=== PATIENT | male | born 1950 | race African-American/Black ===

== ENCOUNTER 2018-08-14 14:04 | Inpatient (IN) | payer OTHER, MEDICARE ==
[~2018-08-14] VITALS: Ht 175.3 cm; Wt 73.0 kg
[2018-08-14] MEDS ORDERED: IV NS 0.9% 500 ML BAG IV ONE ×2 (15:00→17:00)
[2018-08-14 15:10] LABS: BASOPHILS # (AUTO) 0.1 /CMM (0.0-0.2); BASOPHILS % (AUTO) 1.2 % (0.0-2.0); EOSINOPHILS % (AUTO) 1.6 % (0.0-6.0); HEMATOCRIT 39 % (39-51); HEMOGLOBIN 12.9 g/dL (13.5-17.5); LYMPHOCYTES # (AUTO) 1.5 /CMM (0.8-4.8); LYMPHOCYTES % (AUTO) 28.3 % (20.0-44.0); MEAN CORPUSCULAR HGB CONC 33 g/dl (31.0-36.0); MEAN CORPUSCULAR VOLUME 96 fL (80-96); MONOCYTES # (AUTO) 0.6 /CMM (0.1-1.30); MONOCYTES % (AUTO) 12.1 % (2.0-12.0); NEUTROPHILS # (AUTO) 2.9 /CMM (1.8-8.9); NEUTROPHILS % (AUTO) 56.8 % (43.0-81.0); PLATELET COUNT (AUTO) 271 /CMM (150-450); RED BLOOD CELL COUNT(AUTO) 4.08 MIL/uL (4.5-6.0); WHITE BLOOD COUNT (AUTO) 5.2 K/uL (4.3-11.0)
[2018-08-14 15:18] LABS: CALCIUM, SERUM 9.2 mg/dL (8.5-10.1); CREATININE 0.8 mg/dL (0.6-1.3); POTASSIUM 3.3 mmol/L (3.5-5.1)
[2018-08-14 15:22] LABS: BILIRUBIN,URINE SMALL (NEGATIVE); BLOOD, URINE Large Ery/uL (NEGATIVE); KETONES,URINE Trace (NEGATIVE); LEUKOCYTE ESTERASE ,URINE Trace (NEGATIVE); NITRITE, URINE Negative (NEGATIVE); PROTEIN,URINE 100 mg/dl (NEGATIVE); UGLUCOSE Negative (NEGATIVE); UROBILINOGEN,URINE 0.2 EU/dL (0.2)
[2018-08-14 15:24] LABS: ALBUMIN 3.9 g/dL (3.4-5.0); BILIRUBIN,DIRECT 0.2 mg/dL (0.0-0.2); BILIRUBIN,TOTAL 0.4 mg/dL (0.2-1.0); TOTAL PROTEIN, SERUM 8.4 g/dL (6.4-8.2)
[2018-08-14] MEDS ORDERED: RIVA10TA PO (15:26)
[2018-08-14] MEDS ORDERED: LINA290C PO (15:26)
[2018-08-14] MEDS ORDERED: HYDR-4384 PO (15:26)
[2018-08-14] MEDS ORDERED: FURO-144 PO (15:26)
[2018-08-14] MEDS ORDERED: METO25TA20 PO (15:26)
[2018-08-14] MEDS ORDERED: LACT10SO43 PO (15:26)
[2018-08-14] MEDS ORDERED: GLAT40SY SQ (15:26)
[2018-08-14] MEDS ORDERED: LACO150T2 PO (15:26)
[2018-08-14] MEDS ORDERED: LEVE250T2 PO (15:26)
[2018-08-14] MEDS ORDERED: LOTE5DRO4 EACHEYE (15:26)
[2018-08-14] MEDS ORDERED: ACET-868 PO (15:26)
[2018-08-14] MEDS ORDERED: ALBU2.5V38 IH (15:26)
[2018-08-14] MEDS ORDERED: ALPR0.5T8 PO (15:26)
[2018-08-14] MEDS ORDERED: DILT300C57 PO (15:26)
[2018-08-14] MEDS ORDERED: OXCA300T15 PO ×2 (15:26)
[2018-08-14 15:36] LABS: APPEARANCE,URINE HAZY (CLEAR)
[2018-08-14 15:37] LABS: COLOR,URINE DARK YELLOW (YELLOW); RBC,URINE 51-80 /HPF (0-2)
[2018-08-14 15:38] LABS: BACTERIA,URINE Few /HPF (None Seen); MUCUS,URINE Many /LPF (None Seen); SQUAMOUS EPITHELIAL CELL,UR Moderate /HPF (None Seen)
[2018-08-14] MEDS ORDERED: ASPIRIN 300 MG/SUPP.RECT RC ONE ×2 (16:30→16:48)
[2018-08-14] MEDS ORDERED: POTASSIUM CL. PREMIX PERIPHER. 50 ML ONE ×2 (16:48→17:49)
[2018-08-14] MEDS ORDERED: CT SWABBABLE VALVE TRANS SET 1 EA INFUS.SET MC ONE (16:52)
[2018-08-14] MEDS ORDERED: IOHEXOL-300 100 ML VIAL IV ONE (16:52)
[2018-08-14] MEDS ORDERED: IV NS 0.9% 250 ML IV ONE (16:52)
[2018-08-14] MEDS: POTASSIUM CL. PREMIX PERIPHER. 50 ML IV SCH ×4 (17:04→21:15)
[2018-08-14] MEDS ORDERED: MAGNESIUM HYDROXIDE 30 ML UDC PO PRN (18:30)
[2018-08-14] MEDS ORDERED: HYDROCODONE/APAP 5/325MG 1 EACH TABLET PO PRN (18:30)
[2018-08-14] MEDS ORDERED: Z GUARD REMEDY 2 OZ OINT TP PRN (18:30)
[2018-08-14] MEDS ORDERED: ALPRAZOLAM 0.5 MG TABLET PO PRN (18:30)
[2018-08-14] MEDS ORDERED: ONDANSETRON HCL/PF 4 MG/2 ML VIAL IVP PRN (18:30)
[2018-08-14] MEDS ORDERED: MAG HYDROX/AL HYDROX/SIMETH 30 ML UDC PO PRN (18:30)
[2018-08-14] MEDS ORDERED: ALBUTEROL FS 2.5 MG/0.5 ML VIAL.NEB NEB PRN (19:30)
[2018-08-14 20:00] VITALS: BP 132/80
[2018-08-14] MEDS: LEVETIRACETAM (250 MG) 250 MG TABLET PO SCH (21:15)
[2018-08-14] MEDS: LACTULOSE 10 G/15 ML UDC (PYXIS) PO SCH (21:15)
[2018-08-14] MEDS: LACOSAMIDE 50 MG TABLET PO SCH (21:16)
[2018-08-14] MEDS: METOPROLOL TARTRATE 25 MG TABLET PO SCH (21:16)
[2018-08-14] MEDS: OXCARBAZEPINE 150 MG TABLET PO SCH (21:17)
[2018-08-15] VITALS: BP 92/42
[2018-08-15 04:00] VITALS: BP 121/74
[2018-08-15 06:23] LABS: BASOPHILS % (AUTO) 1.1 % (0.0-2.0); EOSINOPHILS % (AUTO) 1.8 % (0.0-6.0); HEMATOCRIT 37 % (39-51); HEMOGLOBIN 12.1 g/dL (13.5-17.5); LYMPHOCYTES # (AUTO) 1.3 /CMM (0.8-4.8); MEAN CORPUSCULAR HGB CONC 33 g/dl (31.0-36.0); MEAN CORPUSCULAR VOLUME 96 fL (80-96); MONOCYTES # (AUTO) 0.5 /CMM (0.1-1.30); MONOCYTES % (AUTO) 10.2 % (2.0-12.0); NEUTROPHILS # (AUTO) 2.6 /CMM (1.8-8.9); NEUTROPHILS % (AUTO) 57.9 % (43.0-81.0); PLATELET COUNT (AUTO) 230 /CMM (150-450); RED BLOOD CELL COUNT(AUTO) 3.84 MIL/uL (4.5-6.0); WHITE BLOOD COUNT (AUTO) 4.6 K/uL (4.3-11.0)
[2018-08-15 06:39] LABS: CALCIUM, SERUM 8.7 mg/dL (8.5-10.1); CREATININE 0.8 mg/dL (0.6-1.3); MAGNESIUM 1.8 mg/dL (1.8-2.4); PHOSPHORUS 3.4 mg/dL (2.5-4.9); POTASSIUM 3.7 mmol/L (3.5-5.1)
[2018-08-15 06:40] LABS: THYROID STIMULATING HORMONE 1.721 uIU/mL (0.358-3.74)
[2018-08-15 08:00] VITALS: BP 123/60
[2018-08-15] MEDS: DILTIAZEM HCL CD 300 MG PO SCH (09:25)
[2018-08-15] MEDS: METOPROLOL TARTRATE 25 MG TABLET PO SCH ×2 (09:26→21:40)
[2018-08-15] MEDS: OXCARBAZEPINE 150 MG TABLET PO SCH ×2 (09:26→21:39)
[2018-08-15] MEDS: LEVETIRACETAM (250 MG) 250 MG TABLET PO SCH ×2 (09:27→21:38)
[2018-08-15] MEDS: LACOSAMIDE 50 MG TABLET PO SCH ×2 (09:27→21:38)
[2018-08-15] MEDS: LACTULOSE 10 G/15 ML UDC (PYXIS) PO SCH ×2 (09:27→13:00)
[2018-08-15] MEDS ORDERED: LINACLOTIDE 290 MCG PO SCH (11:00)
[2018-08-15] MEDS ORDERED: LOTEPREDNOL ETABONATE EACHEYE PRN (11:00)
[2018-08-15 12:00] VITALS: BP_SYST 120; BP_DIAS 60; BP_DIAS 78
[2018-08-15] MEDS: PANTOPRAZOLE 40 MG VIAL IV SCH (14:30)
[2018-08-15] MEDS ORDERED: CHOL20004 PO (15:06)
[2018-08-15] MEDS ORDERED: SULF1TAB48 PO (15:06)
[2018-08-15] MEDS ORDERED: CRAN450C PO (15:06)
[2018-08-15 16:00] VITALS: BP_SYST 120; BP_SYST 121; BP_DIAS 78; BP_DIAS 80
[2018-08-15] MEDS: GLATIRAMER ACETATE 40 MG SQ SCH ×2 (17:53→21:37)
[2018-08-15] MEDS ORDERED: BISA10SU61 RC (19:26)
[2018-08-15 20:00] VITALS: BP_SYST 117; BP_SYST 123; BP_DIAS 72; BP_DIAS 83
[2018-08-16] VITALS: BP 113/71
[2018-08-16 04:00] VITALS: BP_SYST 101; BP_SYST 112; BP_DIAS 52; BP_DIAS 68
[2018-08-16 06:44] LABS: BASOPHILS % (AUTO) 0.9 % (0.0-2.0); EOSINOPHILS % (AUTO) 1.5 % (0.0-6.0); HEMATOCRIT 36 % (39-51); LYMPHOCYTES # (AUTO) 1.2 /CMM (0.8-4.8); LYMPHOCYTES % (AUTO) 25.7 % (20.0-44.0); MEAN CORPUSCULAR HGB CONC 33 g/dl (31.0-36.0); MEAN CORPUSCULAR VOLUME 95 fL (80-96); MONOCYTES # (AUTO) 0.4 /CMM (0.1-1.30); MONOCYTES % (AUTO) 8.9 % (2.0-12.0); NEUTROPHILS # (AUTO) 2.9 /CMM (1.8-8.9); PLATELET COUNT (AUTO) 220 /CMM (150-450); WHITE BLOOD COUNT (AUTO) 4.5 K/uL (4.3-11.0)
[2018-08-16 07:07] LABS: CALCIUM, SERUM 8.7 mg/dL (8.5-10.1); CREATININE 0.9 mg/dL (0.6-1.3); POTASSIUM 4.1 mmol/L (3.5-5.1)
[2018-08-16 08:00] VITALS: BP 138/71
[2018-08-16] MEDS: SULFAMETH/TRIMETH 800/160 MG 1 UDTAB TABLET PO SCH (09:49)
[2018-08-16] MEDS: LACOSAMIDE 50 MG TABLET PO SCH ×2 (09:49→20:51)
[2018-08-16] MEDS: LEVETIRACETAM (250 MG) 250 MG TABLET PO SCH ×2 (09:50→20:52)
[2018-08-16] MEDS: METOPROLOL TARTRATE 25 MG TABLET PO SCH ×2 (09:50→20:52)
[2018-08-16] MEDS: OXCARBAZEPINE 150 MG TABLET PO SCH ×2 (09:51→21:03)
[2018-08-16] MEDS: DILTIAZEM HCL CD 300 MG PO SCH (09:53)
[2018-08-16 12:00] VITALS: BP 134/79
[2018-08-16] MEDS ORDERED: NEOSTIGMINE IV SCH (14:38)
[2018-08-16] MEDS: PANTOPRAZOLE 40 MG VIAL IV SCH (15:08)
[2018-08-16 16:00] VITALS: BP 132/81
[2018-08-16] MEDS ORDERED: NEOSTIGMINE METHYLSULFATE INJ 1 MG/ML VIAL IV ONE (17:00)
[2018-08-16] MEDS: LACTULOSE 10 G/15 ML UDC (PYXIS) PO SCH (19:19)
[2018-08-16 20:00] VITALS: BP 114/66
[2018-08-17] VITALS: BP 120/59
[2018-08-17 04:00] VITALS: BP 119/58
[2018-08-17 07:02] LABS: BASOPHILS # (AUTO) 0.1 /CMM (0.0-0.2); BASOPHILS % (AUTO) 1.3 % (0.0-2.0); EOSINOPHILS % (AUTO) 1.7 % (0.0-6.0); HEMATOCRIT 34 % (39-51); HEMOGLOBIN 11.4 g/dL (13.5-17.5); LYMPHOCYTES # (AUTO) 1.1 /CMM (0.8-4.8); LYMPHOCYTES % (AUTO) 26.9 % (20.0-44.0); MEAN CORPUSCULAR HGB CONC 34 g/dl (31.0-36.0); MEAN CORPUSCULAR VOLUME 94 fL (80-96); MONOCYTES # (AUTO) 0.5 /CMM (0.1-1.30); MONOCYTES % (AUTO) 12.7 % (2.0-12.0); NEUTROPHILS # (AUTO) 2.4 /CMM (1.8-8.9); NEUTROPHILS % (AUTO) 57.4 % (43.0-81.0); PLATELET COUNT (AUTO) 216 /CMM (150-450); RED BLOOD CELL COUNT(AUTO) 3.58 MIL/uL (4.5-6.0); WHITE BLOOD COUNT (AUTO) 4.1 K/uL (4.3-11.0)
[2018-08-17 07:12] LABS: CALCIUM, SERUM 8.1 mg/dL (8.5-10.1); CREATININE 0.8 mg/dL (0.6-1.3); POTASSIUM 3.6 mmol/L (3.5-5.1)
[2018-08-17 08:00] VITALS: BP 119/77
[2018-08-17] MEDS: LACOSAMIDE 50 MG TABLET PO SCH ×2 (09:55→21:30)
[2018-08-17] MEDS: SULFAMETH/TRIMETH 800/160 MG 1 UDTAB TABLET PO SCH (09:56)
[2018-08-17] MEDS: OXCARBAZEPINE 150 MG TABLET PO SCH ×2 (09:56→21:31)
[2018-08-17] MEDS: METOPROLOL TARTRATE 25 MG TABLET PO SCH ×2 (09:56→21:31)
[2018-08-17] MEDS: LACTULOSE 10 G/15 ML UDC (PYXIS) PO SCH ×3 (09:57→17:51)
[2018-08-17] MEDS: LEVETIRACETAM (250 MG) 250 MG TABLET PO SCH ×2 (09:57→21:30)
[2018-08-17] MEDS: DILTIAZEM HCL CD 300 MG PO SCH (09:59)
[2018-08-17] MEDS: LINZESS 290MCG CAPSULE PO SCH (10:58)
[2018-08-17 12:00] VITALS: BP 123/80
[2018-08-17] MEDS: PANTOPRAZOLE 40 MG VIAL IV SCH (14:36)
[2018-08-17] MEDS: ACETAMINOPHEN 325 MG TABLET PO PRN (14:38)
[2018-08-17 16:00] VITALS: BP 125/87
[2018-08-17 20:00] VITALS: BP 124/78
[2018-08-18 04:00] VITALS: BP 111/73
[2018-08-18 06:21] LABS: BASOPHILS % (AUTO) 0.6 % (0.0-2.0); HEMATOCRIT 34 % (39-51); HEMOGLOBIN 11.6 g/dL (13.5-17.5); LYMPHOCYTES # (AUTO) 1.3 /CMM (0.8-4.8); LYMPHOCYTES % (AUTO) 32.4 % (20.0-44.0); MEAN CORPUSCULAR HGB CONC 34 g/dl (31.0-36.0); MEAN CORPUSCULAR VOLUME 94 fL (80-96); MONOCYTES # (AUTO) 0.5 /CMM (0.1-1.30); MONOCYTES % (AUTO) 13.6 % (2.0-12.0); NEUTROPHILS % (AUTO) 50.4 % (43.0-81.0); PLATELET COUNT (AUTO) 209 /CMM (150-450); RED BLOOD CELL COUNT(AUTO) 3.65 MIL/uL (4.5-6.0); WHITE BLOOD COUNT (AUTO) 3.9 K/uL (4.3-11.0)
[2018-08-18 06:54] LABS: ALBUMIN 3.2 g/dL (3.4-5.0); BILIRUBIN,TOTAL 0.5 mg/dL (0.2-1.0); CALCIUM, SERUM 8.2 mg/dL (8.5-10.1); CREATININE 0.8 mg/dL (0.6-1.3); MAGNESIUM 1.7 mg/dL (1.8-2.4); PHOSPHORUS 3.2 mg/dL (2.5-4.9); POTASSIUM 3.5 mmol/L (3.5-5.1); TOTAL PROTEIN, SERUM 6.7 g/dL (6.4-8.2)
[2018-08-18 08:00] VITALS: BP 121/75
[2018-08-18] MEDS: LACTULOSE 10 G/15 ML UDC (PYXIS) PO SCH ×3 (09:52→16:44)
[2018-08-18] MEDS: LACOSAMIDE 50 MG TABLET PO SCH ×2 (09:52→21:53)
[2018-08-18] MEDS: METOPROLOL TARTRATE 25 MG TABLET PO SCH ×2 (09:53→21:53)
[2018-08-18] MEDS: OXCARBAZEPINE 150 MG TABLET PO SCH ×2 (09:53→21:53)
[2018-08-18] MEDS: DILTIAZEM HCL CD 300 MG PO SCH (09:54)
[2018-08-18] MEDS: LEVETIRACETAM (250 MG) 250 MG TABLET PO SCH ×2 (09:54→21:53)
[2018-08-18] MEDS: LINZESS 290MCG CAPSULE PO SCH (09:54)
[2018-08-18] MEDS: SULFAMETH/TRIMETH 800/160 MG 1 UDTAB TABLET PO SCH (09:55)
[2018-08-18] MEDS: Magnesium 1GM/D5W 100ML PREMIX 100 ML IV SCH ×2 (11:28→12:30)
[2018-08-18] MEDS: PANTOPRAZOLE 40 MG VIAL IV SCH (13:36)
[2018-08-18] MEDS ORDERED: BISACODYL SUPP (10 MG) 10 MG/SUPP.RECT SUPP.RECT RC PRN (14:30)
[2018-08-18 16:00] VITALS: BP 119/66
[2018-08-18] MEDS ORDERED: GLATIRAMER SQ SCH (16:56)
[2018-08-18 20:00] VITALS: BP 120/79
[2018-08-19] MEDS: ACETAMINOPHEN 325 MG TABLET PO PRN (03:02)
[2018-08-19 04:00] VITALS: BP 116/81
[2018-08-19 07:23] LABS: BASOPHILS # (AUTO) 0.1 /CMM (0.0-0.2); BASOPHILS % (AUTO) 1.2 % (0.0-2.0); HEMATOCRIT 36 % (39-51); HEMOGLOBIN 11.9 g/dL (13.5-17.5); LYMPHOCYTES # (AUTO) 1.1 /CMM (0.8-4.8); LYMPHOCYTES % (AUTO) 21.4 % (20.0-44.0); MEAN CORPUSCULAR HGB CONC 33 g/dl (31.0-36.0); MEAN CORPUSCULAR VOLUME 95 fL (80-96); MONOCYTES # (AUTO) 0.5 /CMM (0.1-1.30); NEUTROPHILS # (AUTO) 3.3 /CMM (1.8-8.9); NEUTROPHILS % (AUTO) 65.4 % (43.0-81.0); PLATELET COUNT (AUTO) 203 /CMM (150-450); RED BLOOD CELL COUNT(AUTO) 3.78 MIL/uL (4.5-6.0)
[2018-08-19 07:36] LABS: CALCIUM, SERUM 8.1 mg/dL (8.5-10.1); CREATININE 0.7 mg/dL (0.6-1.3); PHOSPHORUS 3.1 mg/dL (2.5-4.9); POTASSIUM 3.8 mmol/L (3.5-5.1)
[2018-08-19 08:00] VITALS: BP 128/72
[2018-08-19] MEDS: DILTIAZEM HCL CD 300 MG PO SCH (09:14)
[2018-08-19] MEDS: LINZESS 290MCG CAPSULE PO SCH (09:15)
[2018-08-19] MEDS: LACTULOSE 10 G/15 ML UDC (PYXIS) PO SCH ×2 (09:15→13:08)
[2018-08-19] MEDS: LACOSAMIDE 50 MG TABLET PO SCH (09:16)
[2018-08-19] MEDS: SULFAMETH/TRIMETH 800/160 MG 1 UDTAB TABLET PO SCH (09:16)
[2018-08-19] MEDS: OXCARBAZEPINE 150 MG TABLET PO SCH (09:16)
[2018-08-19] MEDS: LEVETIRACETAM (250 MG) 250 MG TABLET PO SCH (09:16)
[2018-08-19 09:17] VITALS: BP 128/72
[2018-08-19] MEDS: METOPROLOL TARTRATE 25 MG TABLET PO SCH (09:17)
== END 2018-08-19 15:50 | disposition home health service (06) | DRG 388 ==
LOC: ER 14:10 → EDSEX 14:10 → MEDSG1 17:45 → TELE-TD 20:59 → TELE1 08-15 08:00 → MEDSG1 08-17 15:26
PROVIDERS: ADMIT Nurse Practitioner Acute Care; ATTEND Internal Medicine
DX: K56.699 Other intestinal obstruction unspecified as to partial versus complete obstruction (principal); I21.A1 Myocardial infarction type 2; G93.40 Encephalopathy, unspecified; I11.0 Hypertensive heart disease with heart failure; Z86.73 Personal history of transient ischemic attack (TIA), and cerebral infarction without residual deficits; G40.909 Epilepsy, unspecified, not intractable, without status epilepticus; G35 Multiple sclerosis; I50.9 Heart failure, unspecified; E87.6 Hypokalemia; Z98.890 Other specified postprocedural states; Z88.8 Allergy status to other drugs, medicaments and biological substances; Z79.899 Other long term (current) drug therapy; F03.90 Unspecified dementia, unspecified severity, without behavioral disturbance, psychotic disturbance, mood disturbance, and anxiety; Z90.49 Acquired absence of other specified parts of digestive tract; Z83.3 Family history of diabetes mellitus; Z82.49 Family history of ischemic heart disease and other diseases of the circulatory system; Z79.01 Long term (current) use of anticoagulants; Z74.01 Bed confinement status; N40.0 Benign prostatic hyperplasia without lower urinary tract symptoms; K40.90 Unilateral inguinal hernia, without obstruction or gangrene, not specified as recurrent; D63.8 Anemia in other chronic diseases classified elsewhere; I48.2 Chronic atrial fibrillation; K76.89 Other specified diseases of liver; N31.9 Neuromuscular dysfunction of bladder, unspecified
CPT/HCPCS: 36415; 70450-TC; 71045-TC; 74018; 80048-TC; 80053-TC; 80061-TC; 80076-TC; 81000-TC; 83605-TC; 83690-TC; 83735-TC; 84100-TC; 84443-TC; 84484-TC; 85025-TC; 85730-TC; 87081-TC; 87086-TC; 93307-TC; 97110-TC; 97112-TC; 97530-TC; C9113; G0378; J2710; J3475; J3480; J7030; J7050; Q9967

== ENCOUNTER 2019-01-23 14:14 | Inpatient (IN) | payer OTHER, MEDICARE ==
[~2019-01-23] VITALS: Ht 177.8 cm; Wt 84.4 kg
[~2019-01-23 14:14] MED LIST: ACET-868 PO; ALBU2.5V38 IH; BISA10SU61 RC; CHOL20004 PO; CRAN450C PO; DILT300C57 PO; FURO-144 PO; GLAT40SY SQ; LACO150T2 PO; LACT10SO43 PO; LEVE250T2 PO; LINA290C PO; LOTE5DRO4 EACHEYE; METO25TA20 PO; OXCA300T15 PO; PIPERACILLIN /TAZOBACTAM 3.375 G in IV D5W 50 ML IV SCH; RIVA10TA PO; SULF1TAB48 PO
--- NOTE | 2019-01-23 14:18 | NUR ---
SARAHI BUCIO 89 from [facility] "SOB- MD was making rounds this am found him like this" Tachypneic SOB/Labored resp., Anasarca, TO ER BED 5, HOOKED TO MONITOR, RT AT BEDSIDE, DR ORTIZ AT BEDSIDE. STARTED PIV AT L SHOULDER 18G. PT O2 SATURATION UPON ARRival at 86%. placed on non-rebreather mask at 15lpm.
--- NOTE | 2019-01-23 14:20 | NUR ---
PATIENT AGITATED, REMOVES NON-REBREATHER MASK, RECEIVED VERBAL ORDER FROM DR ORTIZ OF ATIVAN 1MG IV. CARRIED OUT
[2019-01-23] MEDS ORDERED: LORAZEPAM INJ 2 MG/ML VIAL ONE (14:23)
--- NOTE | 2019-01-23 14:28 | NUR ---
REVEIVED VERBAL ORDER OF KETAMINE 25MG IVP FROM SR ORTIZ. CARRIED OUT
[2019-01-23] MEDS ORDERED: KETAMINE HCL (500MG/10ML) 50 MG/ML VIAL ONE (14:29)
[2019-01-23] MEDS ORDERED: methylPREDNISolone SOD SUCC 125 MG/2ML VIAL IV ONE (14:30)
[2019-01-23] MEDS ORDERED: LORAZEPAM INJ 2 MG/ML VIAL IV ONE (14:30)
[2019-01-23] MEDS ORDERED: IPRATROPIUM NEB FS 0.5 MG/2.5 ML AMPUL.NEB NEB ONE (14:30)
[2019-01-23] MEDS ORDERED: ALBUTEROL FS 2.5 MG/3 ML VIAL.NEB NEB ONE (14:30)
--- NOTE | 2019-01-23 14:32 | NUR ---
Patient placed on nasal cannnula at 5LPM, O2 saturation at 96%
--- NOTE | 2019-01-23 14:41 | NUR ---
SPOKE TO LINCOLN ESPINOZA NETWORK SECURITY OFFICER OF BRIANNA, PATIENT IS DNR COMFORT MEASURES ONLY. VERIFIED WITH STEFANIA MORENO LVN.
[2019-01-23 14:43] LABS: WHITE BLOOD COUNT (AUTO) 4.8 K/uL (4.3-11.0)
[2019-01-23 14:47] LABS: BASOPHILS % (AUTO) 0.9 % (0.0-2.0); EOSINOPHILS % (AUTO) 2.9 % (0.0-6.0); HEMATOCRIT 39 % (39-51); HEMOGLOBIN 13.2 g/dL (13.5-17.5); LYMPHOCYTES # (AUTO) 0.7 /CMM (0.8-4.8); MEAN CORPUSCULAR HGB CONC 34 g/dl (31.0-36.0); MEAN CORPUSCULAR VOLUME 99 fL (80-96); MONOCYTES # (AUTO) 0.4 /CMM (0.1-1.30); MONOCYTES % (AUTO) 8.8 % (2.0-12.0); NEUTROPHILS # (AUTO) 3.5 /CMM (1.8-8.9); NEUTROPHILS % (AUTO) 73.4 % (43.0-81.0); PLATELET COUNT (AUTO) 207 /CMM (150-450); RED BLOOD CELL COUNT(AUTO) 3.97 MIL/uL (4.5-6.0)
[2019-01-23 14:54] LABS: CALCIUM, SERUM 8.8 mg/dL (8.5-10.1); CREATININE 0.9 mg/dL (0.6-1.3); POTASSIUM 4.1 mmol/L (3.5-5.1)
[2019-01-23] MEDS ORDERED: METO2.5T2 PO (14:58)
[2019-01-23] MEDS ORDERED: MULT-447 PO (14:58)
[2019-01-23] MEDS ORDERED: DILT30TA2 PO (14:58)
[2019-01-23] MEDS ORDERED: MAGN400O6 PO (14:58)
[2019-01-23] MEDS ORDERED: POLY17PO4 PO (14:58)
[2019-01-23] MEDS ORDERED: FERR325T23 PO (14:58)
[2019-01-23] MEDS ORDERED: CARV3.122 PO (14:58)
[2019-01-23] MEDS ORDERED: NA P133E RC (14:58)
[2019-01-23] MEDS ORDERED: PROT1PAC2 PO (14:58)
[2019-01-23] MEDS ORDERED: DOCU-141 PO (14:58)
[2019-01-23] MEDS ORDERED: LUBI8CAP PO (14:58)
[2019-01-23] MEDS ORDERED: POTA10TA15 PO (14:58)
[2019-01-23] MEDS ORDERED: BACL10TA PO (14:58)
[2019-01-23] MEDS ORDERED: AMIN30LI2 PO (14:58)
[2019-01-23] MEDS ORDERED: IPRA3AMP23 IH (14:58)
[2019-01-23] MEDS ORDERED: ATOR10TA PO (14:58)
[2019-01-23 15:06] LABS: ALBUMIN 3.3 g/dL (3.4-5.0); BILIRUBIN,DIRECT 0.3 mg/dL (0.0-0.2); BILIRUBIN,TOTAL 0.5 mg/dL (0.2-1.0); TOTAL PROTEIN, SERUM 8.6 g/dL (6.4-8.2)
--- NOTE | 2019-01-23 15:13 | NUR ---
FAMILY AT BEDSIDE
[2019-01-23] MEDS ORDERED: FUROSEMIDE 40 MG/4 ML VIAL ONE (15:21)
[2019-01-23] MEDS ORDERED: methylPREDNISolone SOD SUCC 125 MG/2ML VIAL ONE (15:21)
[2019-01-23] MEDS ORDERED: NITROGLYCERIN PACKET 1 GM PACKET ONE (15:22)
--- NOTE | 2019-01-23 15:29 | NUR ---
CALLED FOR TELE BED, TURNED IN MOVE SHEET
[2019-01-23] MEDS ORDERED: ASPIRIN 325 MG TABLET PO ONE (15:30)
[2019-01-23] MEDS ORDERED: PIPERACILLIN /TAZOBACTAM 3.375 G in IV D5W 50 ML IV ONE (15:30)
[2019-01-23] MEDS ORDERED: FUROSEMIDE 40 MG/4 ML VIAL IV ONE (15:30)
[2019-01-23] MEDS ORDERED: KETAMINE HCL (500MG/10ML) 50 MG/ML VIAL IV ONE (15:30)
[2019-01-23] MEDS ORDERED: VANCOMYCIN 1 GM in IV D5W 250 ML IV ONE (15:30)
[2019-01-23] MEDS ORDERED: NITROGLYCERIN PACKET 1 GM PACKET TOP ONE (15:30)
[2019-01-23] MEDS ORDERED: IPRATROPIUM NEB FS 0.5 MG/2.5 ML AMPUL.NEB ONE (15:42)
[2019-01-23] MEDS ORDERED: ALBUTEROL FS 2.5 MG/3 ML VIAL.NEB ONE (15:42)
[2019-01-23] MEDS ORDERED: ASPIRIN 325 MG TABLET ONE (15:45)
[2019-01-23] MEDS ORDERED: DILTIAZEM HCL 50 MG IV ONE (15:45)
[2019-01-23] MEDS ORDERED: DILTIAZEM HCL 50 MG IV IV ONE (16:00)
[2019-01-23] MEDS ORDERED: MAG HYDROX/AL HYDROX/SIMETH 30 ML UDC PO PRN (16:30)
[2019-01-23] MEDS ORDERED: MORPHINE SULFATE INJ 2 MG/ML DISP.SYRIN IV PRN (16:30)
[2019-01-23] MEDS ORDERED: ONDANSETRON HCL/PF 4 MG/2 ML VIAL IVP PRN (16:30)
[2019-01-23] MEDS ORDERED: ACETAMINOPHEN 650 MG/SUPP.RECT RC PRN (16:30)
[2019-01-23] MEDS ORDERED: LORAZEPAM INJ 2 MG/ML VIAL IV PRN (16:30)
[2019-01-23] MEDS ORDERED: MAGNESIUM HYDROXIDE 30 ML UDC PO PRN (16:30)
--- NOTE | 2019-01-23 16:35 | NUR ---
report given to abby anna of tele unit
[2019-01-23] MEDS ORDERED: FEE PK DOSING 1 MIN EA MC ONE (16:38)
[2019-01-23 16:45] VITALS: BP 112/76
--- NOTE | 2019-01-23 16:45 | NUR ---
MASTER [employer]AT [employer]AKES NOTES RECEIVED PT FROM ER DX. ACUTE ENCEPALOPATHY BY DR. SENTHIL PAVON. ACCOMPANIED BY DAUGHTER. ON 5L O2, MOUTH BREATHER. GARBLED SPEECH, OPENS EYES, UNABLE TO FOLLOW COMMAND, VERY LETHARGIC. AFIB HR 100s ON TELE MONITOR, NO SIGNS OF PAIN, RT SHOULDER G20 AND LEFT SHOULDER G18 BOTH FLUSHES WELL, SITE CLEAR, SEE NURSING FLOWSHEET FOR SKIN ISSUES, BUE AND BLE +3 EDEMA, SUPRAPUBIC CATH WITH 700 ML OUTPUT, NPO FOR NOW, CALL LIGHT WITH IN REACH, HOB ELEVATED, SAFETY MEASURES IN PLACE. BED LOW AND LOCKED. WILL CONTINUE TO MONITOR. ONGOING VANCO IV 1 GM INFUSION.
[2019-01-23] MEDS: VANCOMYCIN 1 GM in IV D5W 250 ML IV SCH (17:00)
--- NOTE | 2019-01-23 17:15 | NUR ---
METAL CNC OPERATOR NOTES VANCO IV NOT ADMINISTERED. WAS STARTED AT ER.
[2019-01-23 18:00] VITALS: BP 112/76
--- NOTE | 2019-01-23 19:17 | NUR ---
SCHOOL OFFICE MANAGER NOTES PM CARE DONE. ALL NEEDS MET. PATIENT NOT IN ANY DISTRESS. ENDORSED TO NEXT SHIFT FOR JORDON.
--- NOTE | 2019-01-23 19:45 | NUR ---
ICU/RN TRIAGE RECEIVED REPORT FROM DAY NURSE. SEE NURSING FLOW SHEET FOR ASSESSMENT. PT'S SKIN ISSUES ARE ADDRESSED ALONG WITH INTERVENTIONS TO EACH ON THE FLOWSHEET. PT WAS TURNED AND REPOSITIONED FOR COMFORT AND CARE. NO ACUTE DISTRESS SEEN AT THIS TIME. WILL CONTINUE TO MONITOR THIS PT.
[2019-01-23 20:00] VITALS: BP_SYST 107; BP_DIAS 57; BP_DIAS 58
[2019-01-23] MEDS: LEVETIRACETAM (500MG) 1,500 MG in IV NS 0.9% 100 ML IV SCH (20:40)
--- NOTE | 2019-01-23 22:00 | NUR ---
DELMIS/AUDIT MACHINE OPERATOR PT WAS GIVEN PM CARE, NO BM SEEN AT THIS TIME, WILL MONITOR THIS. PT REMAINS ON CURRENT O2 VIA N/C AT 5 LITERS WITH SATURATION AT 98-100%. PT WAS TURNED AND REPOSITIONED FOR COMFORT AND CARE. WILL CONTINUE TO MONITOR THIS PT. NO ACUTE DISTRESS SEEN AT THIS TIME.
--- NOTE | 2019-01-23 22:05 | NUR ---
DELMIS/ARAM PT WAS GIVEN PM CARE, NO BM SEEN AT THIS TIME, WILL MONITOR THIS. PT REMAINS ON CURRENT HIGH FLOW O2 WITH SATURATION AT 98-100%. PT WAS TURNED AND REPOSITIONED FOR COMFORT AND CARE. WILL CONTINUE TO MONITOR THIS PT. NO ACUTE DISTRESS SEEN AT THIS TIME. Addendum: 01/24/19 at 0227 by LEIGH ANN MORENO LVN WRONG PT
[2019-01-23] MEDS: PIPERACILLIN /TAZOBACTAM 3.375 G in IV D5W 50 ML IV SCH (23:13)
[2019-01-24] VITALS: BP 98/70
--- NOTE | 2019-01-24 00:40 | NUR ---
DELMIS/CONTRACT RUNNER PT WAS TURNED AND REPOSITIONED FOR COMFORT AND CARE. WILL CONTINUE TO MONITOR THIS PT. NO ACUTE DISTRESS SEEN AT THIS TIME. PT APPEARS TO BE MORE ALERT THAN EARLIER.
[2019-01-24] MEDS: VANCOMYCIN 1 GM in IV D5W 250 ML IV SCH ×3 (00:43→17:29)
--- NOTE | 2019-01-24 02:25 | NUR ---
DELMIS/C 40A CREW CHIEF PT WAS GIVEN AM CARE, NO BM SEEN AT THIS TIME, WILL MONITOR THIS. PT REMAINS ON CURRENT N/C 2 LITERS WITH SATURATION AT 98-100%. PT WAS TURNED AND REPOSITIONED FOR COMFORT AND CARE. WILL CONTINUE TO MONITOR THIS PT. NO ACUTE DISTRESS SEEN AT THIS TIME.
[2019-01-24 04:00] VITALS: BP 114/63
--- NOTE | 2019-01-24 05:10 | NUR ---
DELMIS/AFTER SCHOOL TUTOR AM LABS WERE DONE
[2019-01-24] MEDS: PIPERACILLIN /TAZOBACTAM 3.375 G in IV D5W 50 ML IV SCH ×3 (05:31→17:29)
--- NOTE | 2019-01-24 07:30 | NUR ---
ADJUSTER ARBITRATOR AM NOTES RECEIVED PT IN BED, AO X 2. WITH PERIODS OF CONFUSION, ON 3L O2, ABLE TO FOLLOW COMMAND, AFIB HR 90s, ON TELE MONITOR, NO SIGNS OF PAIN, RT SHOULDER G20 AND LEFT SHOULDER G18 BOTH FLUSHES WELL, SITE CLEAR, SEE NURSING FLOWSHEET FOR SKIN ISSUES, BUE AND BLE +3 EDEMA, SUPRAPUBIC CATH WITH YELLO URINE OUTPUT, NPO FOR NOW, CALL LIGHT WITH IN REACH, HOB ELEVATED, SAFETY MEASURES IN PLACE. BED LOW AND LOCKED. WILL CONTINUE TO MONITOR.
[2019-01-24 08:00] VITALS: BP 92/60
[2019-01-24 08:18] LABS: BASOPHILS % (AUTO) 0.4 % (0.0-2.0); HEMATOCRIT 32 % (39-51); HEMOGLOBIN 11.1 g/dL (13.5-17.5); LYMPHOCYTES # (AUTO) 0.6 /CMM (0.8-4.8); LYMPHOCYTES % (AUTO) 13.9 % (20.0-44.0); MEAN CORPUSCULAR HGB CONC 34 g/dl (31.0-36.0); MEAN CORPUSCULAR VOLUME 98 fL (80-96); MONOCYTES # (AUTO) 0.3 /CMM (0.1-1.30); MONOCYTES % (AUTO) 6.3 % (2.0-12.0); NEUTROPHILS # (AUTO) 3.5 /CMM (1.8-8.9); NEUTROPHILS % (AUTO) 79.4 % (43.0-81.0); PLATELET COUNT (AUTO) 162 /CMM (150-450); RED BLOOD CELL COUNT(AUTO) 3.31 MIL/uL (4.5-6.0); WHITE BLOOD COUNT (AUTO) 4.4 K/uL (4.3-11.0)
[2019-01-24 08:38] LABS: CALCIUM, SERUM 7.8 mg/dL (8.5-10.1); CREATININE 0.9 mg/dL (0.6-1.3); MAGNESIUM 1.8 mg/dL (1.8-2.4); PHOSPHORUS 3.9 mg/dL (2.5-4.9); POTASSIUM 3.7 mmol/L (3.5-5.1)
[2019-01-24] MEDS ORDERED: FUROSEMIDE 40 MG/4 ML VIAL IV SCH (09:00)
[2019-01-24] MEDS: LEVETIRACETAM (500MG) 1,500 MG in IV NS 0.9% 100 ML IV SCH (09:26)
[2019-01-24] MEDS ORDERED: ENOXAPARIN SODIUM 40 MG/0.4 ML DISP.SYRIN SQ SCH (09:30)
--- NOTE | 2019-01-24 09:30 | NUR ---
MS RN NOTES DC TELEMETRY PER DR. KAPOOR. STILL FOR MED RECONCILIATION.
--- NOTE | 2019-01-24 10:30 | NUR ---
MS RN NOTES DR. SENTHIL PAVON NOT IN THE HOUSE. PATIENT REASSIGNED TO DR. DINESH CUELLAR.
--- NOTE | 2019-01-24 12:50 | NUR ---
MS RN NOTES DR. DINESH CUELLAR NOTIFIED ABOUT PT'S MEDICATIONS NEEDED FOR RECONCILIATION. OK TO PUT IN ORDER FOR DVT PUMP.
--- NOTE | 2019-01-24 13:45 | NUR ---
MS RN NOTES DT. DINESH CUELLAR NOTIFIED, PT'S DAUGHTER HERE AND WISHES TO SPEAK WITH HIM
[2019-01-24 16:00] VITALS: BP 97/73
[2019-01-24] MEDS ORDERED: BACLOFEN (10 MG) 10 MG TABLET PO PRN (18:00)
[2019-01-24] MEDS ORDERED: NA PHOS,M-B/NA PHOS,DI-BA 1 EA ENEMA RC PRN (18:00)
[2019-01-24] MEDS ORDERED: BISACODYL SUPP (10 MG) 10 MG/SUPP.RECT SUPP.RECT RC PRN (18:00)
[2019-01-24] MEDS ORDERED: LACOSAMIDE ORAL SOLN 50 MG/5 ML UDC PO SCH (18:00)
--- NOTE | 2019-01-24 18:51 | NUR ---
MS RN NOTES PM CARE DONE. KELLEY CATH URINE OUTPUT 1500 ML. ALL NEEDS MET. PATIENT NOT IN ANY DISTRESS. ENDORSED TO NEXT SHIFT FOR JORDON. PER DR. DINESH CUELLAR, NPO EXCEPT MEDS.
--- NOTE | 2019-01-24 19:55 | NUR ---
RN OPENING NOTES RECEIVED REPORT FROM DAYSIAFT ALEXIS WOLFE. FOUND Pt AWAKE, RESTING IN BED. WITH O2 VIA NC ON. Pt IS A/OX1, CONFUSED, ALERT TO NAME ONLY. Pt IS VERBAL & ABLE TO MAKE NEEDS KNOWN & ANSWER SIMPLE QUESTIONS. NO S/S OF ACUTE DISTRESS OR SOB NOTED. IV ACCESS ON LT SHOULDER #18G & RT SHOULDER #20G BOTH @TKO. SAFETY MEASURES IN PLACE. BED LOW, LOCKED, HOB ELEVATED, SIDE RAILS UP, CALL LIGHT AND BEDSIDE TABLE WITHIN REACH. BED ALARM ON. WILL CONTINUE TO MONITOR Pt's CONDITION AND SAFETY THROUGHOUT THE NIGHT.
[2019-01-24 21:00] VITALS: BP 117/90
[2019-01-24] MEDS: DILTIAZEM HCL 30 MG TABLET PO SCH (21:38)
[2019-01-24] MEDS: CARVEDILOL 3.125 MG TABLET PO SCH (21:38)
[2019-01-24] MEDS: ATORVASTATIN 10 MG TABLET PO SCH (21:38)
[2019-01-24] MEDS: LEVETIRACETAM (250 MG) 250 MG TABLET PO SCH (21:38)
[2019-01-24] MEDS: POLYETHYLENE GLYCOL 3350 17 GM POWD.PACK PO SCH (21:39)
[2019-01-24] MEDS: OXCARBAZEPINE 150 MG TABLET PO SCH (21:39)
[2019-01-25] MEDS: PIPERACILLIN /TAZOBACTAM 3.375 G in IV D5W 50 ML IV SCH ×5 (00:38→23:19)
[2019-01-25] MEDS: VANCOMYCIN 1 GM in IV D5W 250 ML IV SCH ×3 (01:18→17:01)
[2019-01-25 05:00] VITALS: BP 102/71
--- NOTE | 2019-01-25 06:00 | NUR ---
KELLEY OUTPUT: 1800CC
--- NOTE | 2019-01-25 06:43 | NUR ---
RN CLOSING NOTES NO SIGNIFICANT CHANGES IN Pt's CONDITION. Pt REMAINS STABLE PER BASELINE. NO S/S OF ACUTE DISTRESS OR SEVERE SOB NOTED DURING THE NIGHT. Pt IS ASLEEP IN BED. RESPIRATIONS EVEN WITH EQUAL CHEST RISE AND FALL. ON 02 3L VIA NC, SATING @ 100%. ALL NEEDS MET AND ATTENDED TO. SAFETY MEASURES IN PLACE. IV ACCESS ON LT & RT SHOULDER BOTH AT TKO. WILL ENDORSE TO DAYSHIFT RN FOR Pt's JORDON.
[2019-01-25 07:18] LABS: CALCIUM, SERUM 7.7 mg/dL (8.5-10.1); CREATININE 0.9 mg/dL (0.6-1.3); MAGNESIUM 1.9 mg/dL (1.8-2.4); PHOSPHORUS 3.5 mg/dL (2.5-4.9); POTASSIUM 3.4 mmol/L (3.5-5.1)
--- NOTE | 2019-01-25 07:25 | NUR ---
MS RN OPENING NOTE RECEIVED REPORT FROM [facility] SHIFT NURSE. PT AWAKE IN BED, ALERT BUT DISORIENTED X 3 (TO TIME, PLACE, SITUATION). PT ON NASAL CANNULA 3L/MIN, SATURATING WELL, 18G LEFT SHOULDER AND 20G RIGHT SHOULDER INTACT, PATENT. BED IN LOW POSITION, LOCKED, CALL LIGHT WITHIN REACH. PT ON NPO STATUS EXCEPT MEDS. SWALLOW EVAL PENDING. DISCUSSED PLAN OF CARE WITH PT.
[2019-01-25 07:28] LABS: EOSINOPHILS % (AUTO) 4.2 % (0.0-6.0); HEMATOCRIT 35 % (39-51); HEMOGLOBIN 11.7 g/dL (13.5-17.5); LYMPHOCYTES # (AUTO) 1.2 /CMM (0.8-4.8); LYMPHOCYTES % (AUTO) 29.2 % (20.0-44.0); MEAN CORPUSCULAR HGB CONC 34 g/dl (31.0-36.0); MEAN CORPUSCULAR VOLUME 99 fL (80-96); MONOCYTES # (AUTO) 1.7 /CMM (0.1-1.30); MONOCYTES % (AUTO) 41.6 % (2.0-12.0); PLATELET COUNT (AUTO) 154 /CMM (150-450); RED BLOOD CELL COUNT(AUTO) 3.53 MIL/uL (4.5-6.0); WHITE BLOOD COUNT (AUTO) 4.1 K/uL (4.3-11.0)
[2019-01-25 08:00] VITALS: BP 103/79
[2019-01-25 08:36] LABS: LYMPHOCYTES % (MANUAL) 22 % (16-48); MONOCYTES % (MANUAL) 13 % (0-11.0); NEUTROPHILS % (MANUAL) 65 (42-76)
[2019-01-25] MEDS: POTASSIUM CHLORIDE 10 MEQ TABLET.SA PO SCH (08:42)
[2019-01-25] MEDS: METOLAZONE 2.5 MG TABLET PO SCH (08:42)
[2019-01-25] MEDS: DOCUSATE SODIUM 100 MG CAPSULE PO SCH ×2 (08:43→17:00)
[2019-01-25] MEDS: LACOSAMIDE 50 MG TABLET PO SCH ×2 (08:43→17:00)
[2019-01-25] MEDS: OXCARBAZEPINE 150 MG TABLET PO SCH ×2 (08:43→21:14)
[2019-01-25] MEDS: LEVETIRACETAM (250 MG) 250 MG TABLET PO SCH ×2 (08:44→21:07)
[2019-01-25] MEDS: FUROSEMIDE 40 MG TABLET PO SCH (08:44)
[2019-01-25] MEDS: MAGNESIUM HYDROXIDE 30 ML UDC PO SCH (08:44)
[2019-01-25] MEDS: DILTIAZEM HCL 30 MG TABLET PO SCH ×4 (08:50→21:07)
[2019-01-25] MEDS: CARVEDILOL 3.125 MG TABLET PO SCH ×2 (08:51→21:08)
[2019-01-25] MEDS ORDERED: BENEPROTEIN PO SCH (09:00)
[2019-01-25] MEDS: FERROUS SULFATE (325 MG) 325 MG/TAB TABLET PO SCH (09:22)
[2019-01-25] MEDS: IPRATROPIUM NEB FS 0.5 MG/2.5 ML AMPUL.NEB NEB PRN ×2 (11:20→14:52)
[2019-01-25 13:00] VITALS: BP 105/60
[2019-01-25 16:00] VITALS: BP 149/117
[2019-01-25] MEDS: RIVAROXABAN 10 MG TABLET PO SCH (16:59)
--- NOTE | 2019-01-25 18:46 | NUR ---
MS RN CLOSING NOTE PATIENT AWAKE IN BED, CONFUSED, ON ROOM AIR (REFUSES TO PUT NASAL CANULA ON) SATURATING WELL AT 95. SUPRAPUBIC CATHETER DRAINED 1450ML THROUGHOUT SHIFT. PT HAD BOWEL MOVEMENT. DIET SWITCHED TO MECH SOFT, TOLERATING WELL. PROVIDED SAFETY AND COMFORT TO PATIENT THROUGHOUT SHIFT. BED IN LOW POSITION, LOCKED, CALL LIGHT WITHIN REACH. WILL ENDORSE TO NOC SHIFT.
--- NOTE | 2019-01-25 19:30 | NUR ---
MS RN NOTE PATIENT IN BED CONFUSED SLIGHTLY AGITATED WITH DAUGHTER AT BEDSIDE. MINOR WHEEZES NOTED ABLE TO PLACE NC ON 3L ON THE PATIENT WITH DAUGHTERS HELP. PATIENT DENIES CHEST PAIN AT THIS TIME. PATIENT HAS L/R SHOULDER IV PATENT AND INTACT. NO S/S OF INFECTION/INFILTRATION. REPOSITIONED PATIENT WITH DAUGHTER FOR SKIN BREAKDOWN PROPHYLAXIS. CONFIRMED PATIENT'S DNR/DNI STATUS WITH DAUGHTER RAMIRO. SAFETY/ ASPIRATION PRECAUTIONS IN PLACE HOB HIGH SIDERAILS UP X 3. BED IN LOWEST LOCKED POSITION. RN WILL CONTINUE TO MONITOR FOR CHANGES.
[2019-01-25 20:00] VITALS: BP 155/99
[2019-01-25 21:00] VITALS: BP 155/99
[2019-01-25] MEDS: POLYETHYLENE GLYCOL 3350 17 GM POWD.PACK PO SCH (21:08)
[2019-01-25] MEDS: ATORVASTATIN 10 MG TABLET PO SCH (21:08)
--- NOTE | 2019-01-25 23:54 | NUR ---
MS RN NOTE PATIENT NOTED TO HAVE LARGE SOFT BOWEL MOVEMENT. BED BATH AND LINENS CHANGED WELL
[2019-01-26] MEDS: VANCOMYCIN 1 GM in IV D5W 250 ML IV SCH ×3 (01:15→17:29)
[2019-01-26 04:00] VITALS: BP 154/98
[2019-01-26 05:00] VITALS: BP 154/90
[2019-01-26] MEDS: PIPERACILLIN /TAZOBACTAM 3.375 G in IV D5W 50 ML IV SCH ×4 (05:25→23:51)
--- NOTE | 2019-01-26 06:00 | NUR ---
MS RN NOTE LAST 100 ML OF URINE FROM SUPRAPUBIC CATHETER NOTED TO HAVE HEMATURIA. WILL ENDORSE TO PILAR IN THE AM.
[2019-01-26 06:28] LABS: BASOPHILS % (AUTO) 0.9 % (0.0-2.0); EOSINOPHILS % (AUTO) 2.6 % (0.0-6.0); HEMATOCRIT 34 % (39-51); HEMOGLOBIN 11.6 g/dL (13.5-17.5); LYMPHOCYTES % (AUTO) 27.8 % (20.0-44.0); MEAN CORPUSCULAR HGB CONC 34 g/dl (31.0-36.0); MEAN CORPUSCULAR VOLUME 98 fL (80-96); MONOCYTES # (AUTO) 0.6 /CMM (0.1-1.30); MONOCYTES % (AUTO) 16.5 % (2.0-12.0); NEUTROPHILS # (AUTO) 1.9 /CMM (1.8-8.9); NEUTROPHILS % (AUTO) 52.2 % (43.0-81.0); PLATELET COUNT (AUTO) 144 /CMM (150-450); RED BLOOD CELL COUNT(AUTO) 3.51 MIL/uL (4.5-6.0); WHITE BLOOD COUNT (AUTO) 3.7 K/uL (4.3-11.0)
[2019-01-26 06:46] LABS: CALCIUM, SERUM 7.6 mg/dL (8.5-10.1); CREATININE 0.7 mg/dL (0.6-1.3); PHOSPHORUS 3.3 mg/dL (2.5-4.9); POTASSIUM 3.7 mmol/L (3.5-5.1)
--- NOTE | 2019-01-26 07:28 | NUR ---
MS RN NOTE ALL CARE GIVEN ORDERED. NO S/S OF ACUTE DISTRESS AT THIS TIME. POC ENDORSED TO AM FOR JORDON
[2019-01-26 08:00] VITALS: BP 121/81
--- NOTE | 2019-01-26 08:00 | NUR ---
MS1/RN AM SHIFT INITIAL NOTES RECEIVED PT ASLEEP IN BED, PT HARD TO WAKE UP BUT EVENTUALLY WAKES UP, NO ACUTE CHANGE OF CONDITION NOTED, PT A/O X 1-2, NOTED WHEEZING, LABORED EVEN SHALLOW BREATHING, ON 2L O2 VIA N/C SATURATING @ 97%. ALSO NOTED GENERALIZED EDEMA. IV SITES, FLUSHED, PATENT WITH NO S/S OF INFECTION. SUPRAPUBIC CATHETER NOTED WITH CLEAR YELLOW WITH SMALL BLOOD TINGED OUTPUT. PT IS COMFORTABLE. SCHEDULED AM MEDS TO BE GIVEN. CL WITHIN REACHED, SAFETY MAINTAINED AND ASPIRATION PRECAUTION OBSERVED. ON GOING MONITORING.
--- NOTE | 2019-01-26 09:30 | NUR ---
MS1/RN ROUNDS - DR. RAMÍRZE UPDATED PT'S CONDITION. PT SEEN & EXAMINED BY DR. RAMÍREZ. NO NEW ORDER RECEIVED AT THIS TIME. MONITORING CONTINUED.
[2019-01-26] MEDS: MAGNESIUM HYDROXIDE 30 ML UDC PO SCH (09:43)
[2019-01-26] MEDS: FERROUS SULFATE (325 MG) 325 MG/TAB TABLET PO SCH (09:43)
[2019-01-26] MEDS: DOCUSATE SODIUM 100 MG CAPSULE PO SCH ×2 (09:43→17:32)
[2019-01-26] MEDS: LACOSAMIDE 50 MG TABLET PO SCH ×2 (09:43→17:33)
[2019-01-26] MEDS: METOLAZONE 2.5 MG TABLET PO SCH (09:43)
[2019-01-26] MEDS: LEVETIRACETAM (250 MG) 250 MG TABLET PO SCH ×2 (09:43→21:00)
[2019-01-26] MEDS: FUROSEMIDE 40 MG TABLET PO SCH (09:44)
[2019-01-26] MEDS: CARVEDILOL 3.125 MG TABLET PO SCH ×2 (09:44→20:59)
[2019-01-26] MEDS: OXCARBAZEPINE 150 MG TABLET PO SCH ×2 (09:44→21:57)
[2019-01-26] MEDS: DILTIAZEM HCL 30 MG TABLET PO SCH ×4 (09:44→20:59)
[2019-01-26] MEDS: POTASSIUM CHLORIDE 10 MEQ TABLET.SA PO SCH (09:51)
[2019-01-26 11:05] LABS: EOSINOPHILS % (MANUAL) 1 % (0-4); LYMPHOCYTES % (MANUAL) 30 % (16-48); MONOCYTES % (MANUAL) 14 % (0-11.0); NEUTROPHILS % (MANUAL) 55 (42-76)
--- NOTE | 2019-01-26 11:15 | NUR ---
MS1/RN ROUNDS - DR. KAPOOR CONFIRMED WITH DR. KAPOOR OF NEW ORDERS OF K-DUR AND LASIX. PT SEEN & EXAMINED BY DR. KAPOOR. ORDERS NOTED AND CARRIED. MONITORING CONTINUED.
[2019-01-26] MEDS: POTASSIUM CHLORIDE 20 MEQ TAB.PRT.SR PO SCH ×2 (11:25→13:13)
[2019-01-26] MEDS: FUROSEMIDE 40 MG/4 ML VIAL IV SCH ×3 (11:25→18:10)
[2019-01-26] MEDS ORDERED: METOCLOPRAMIDE HCL 10 MG/2 ML VIAL IV SCH (14:00)
[2019-01-26 16:00] VITALS: BP 130/76
[2019-01-26] MEDS: RIVAROXABAN 10 MG TABLET PO SCH (17:34)
--- NOTE | 2019-01-26 19:30 | NUR ---
MS1/RN AM SHIFT END NOTES ALL NEEDS MET. NO ACUTE CHANGE OF CONDITION NOTED DURING THE SHIFT. NOTED LARGE AMOUNTS OF URINE OUTPUT, PT STILL NOTED WITH WHEEZING BUT SATURATING WELL. PT ENDORSED TO PM NURSE TO CONTINUE CARE.
--- NOTE | 2019-01-26 19:56 | NUR ---
MS RN OPENING NOTES RECEIVED PATIENT IN BED SLEEPING, PT A/O X 1-2, NO ACUTE CHANGE OF CONDITION NOTED, SHALLOW BREATHING, ON 2L O2 VIA N/C SATURATING WELL. NOTED WHEEZING, AND GENERALIZED EDEMA. IV SITES, FLUSHED, PATENT WITH NO S/S OF INFILTRATION. SUPRAPUBIC CATHETER NOTED WITH CLEAR YELLOW URIN OUTPUT. PATIENT IS COMFORTABLE. SAFETY MEASURES ON, BED LOW/LOCKED, CALL LIGHT WITHIN REACH. WILL CONTINUE MONITORING.
[2019-01-26 20:00] VITALS: BP 103/74
[2019-01-26] MEDS: ATORVASTATIN 10 MG TABLET PO SCH (21:54)
[2019-01-26] MEDS: POLYETHYLENE GLYCOL 3350 17 GM POWD.PACK PO SCH (21:54)
[2019-01-27] MEDS: VANCOMYCIN 1 GM in IV D5W 250 ML IV SCH ×3 (00:03→18:00)
[2019-01-27 04:00] VITALS: BP 91/63
[2019-01-27] MEDS: PIPERACILLIN /TAZOBACTAM 3.375 G in IV D5W 50 ML IV SCH ×3 (05:46→18:42)
--- NOTE | 2019-01-27 06:59 | NUR ---
MS RN CLOSING NOTES PATIENT IN BED SLEEPING, ALL NEEDS MET. NO ACUTE CHANGE OF CONDITION NOTED DURING THE SHIFT. LARGE AMOUNTS OF URINE OUTPUT, PT STILL NOTED WITH WHEEZING BUT SATURATING WELL. PATIENT ON 2L NC, TOLERATING WELL. BED IN LOW LOCKED POSITION, CALL LIGHT WITHIN REACH. WILL ENDORSE TO AM SHIFT FOR JORDON.
--- NOTE | 2019-01-27 07:10 | NUR ---
RN INITIAL NOTES RECEIVED REPORT AT BEDSIDE. PT A/O X 1. ON 2L VIA N/C SATURATING WELL. NO SIGN OF RESPIRATORY DISTRESS OR SOB NOTED AT THIS TIME. SUPRAPUBIC CATHETER WITH CLEAR YELLOW URINE. LEFT SHOULDER #18 SL AND RIGHT SHOULDER #20, NO SIGN OF INFILTRATION NOTED, PATENT, SALINE FLUSHED WELL. SAFETY PRECAUTION IN PLACE. BED LIGHT WITHIN THE REACH, BED AT THE LOWEST AND LOCKED POSITION. ASPIRATION PRECAUTION OBSERVED. WILL CONTINUE TO MONITOR.
[2019-01-27 08:00] VITALS: BP 113/64
[2019-01-27 08:29] LABS: CALCIUM, SERUM 7.7 mg/dL (8.5-10.1); CREATININE 0.8 mg/dL (0.6-1.3); MAGNESIUM 1.8 mg/dL (1.8-2.4); PHOSPHORUS 3.1 mg/dL (2.5-4.9)
[2019-01-27 08:46] LABS: BASOPHILS % (AUTO) 0.3 % (0.0-2.0); EOSINOPHILS % (AUTO) 2.5 % (0.0-6.0); HEMATOCRIT 34 % (39-51); HEMOGLOBIN 11.4 g/dL (13.5-17.5); LYMPHOCYTES # (AUTO) 1.2 /CMM (0.8-4.8); LYMPHOCYTES % (AUTO) 37.6 % (20.0-44.0); MEAN CORPUSCULAR HGB CONC 34 g/dl (31.0-36.0); MEAN CORPUSCULAR VOLUME 98 fL (80-96); MONOCYTES # (AUTO) 0.5 /CMM (0.1-1.30); NEUTROPHILS # (AUTO) 1.4 /CMM (1.8-8.9); NEUTROPHILS % (AUTO) 42.6 % (43.0-81.0); PLATELET COUNT (AUTO) 145 /CMM (150-450); RED BLOOD CELL COUNT(AUTO) 3.43 MIL/uL (4.5-6.0); WHITE BLOOD COUNT (AUTO) 3.2 K/uL (4.3-11.0)
[2019-01-27] MEDS: POTASSIUM CHLORIDE 10 MEQ TABLET.SA PO SCH ×2 (09:00→14:54)
[2019-01-27 09:32] LABS: LYMPHOCYTES % (MANUAL) 42 % (16-48); MONOCYTES % (MANUAL) 13 % (0-11.0); NEUTROPHILS % (MANUAL) 45 (42-76)
--- NOTE | 2019-01-27 10:00 | NUR ---
RN MS NOTE VANCOMYCIN WAS HELD DUE TO HIGH VANCO THROUGH. PHARMACY IS AWARE AND WILL ADJUST THE DOSE.
[2019-01-27] MEDS: DOCUSATE SODIUM 100 MG CAPSULE PO SCH ×2 (10:40→17:49)
[2019-01-27] MEDS: LACOSAMIDE 50 MG TABLET PO SCH ×2 (10:40→17:48)
[2019-01-27] MEDS: METOLAZONE 2.5 MG TABLET PO SCH (10:41)
[2019-01-27] MEDS: OXCARBAZEPINE 150 MG TABLET PO SCH ×2 (10:42→21:13)
[2019-01-27] MEDS: FERROUS SULFATE (325 MG) 325 MG/TAB TABLET PO SCH (10:43)
[2019-01-27] MEDS: MAGNESIUM HYDROXIDE 30 ML UDC PO SCH (10:45)
[2019-01-27] MEDS: FUROSEMIDE 40 MG/4 ML VIAL IV SCH ×3 (10:51→17:47)
[2019-01-27] MEDS: POTASSIUM CHLORIDE 20 MEQ TAB.PRT.SR PO SCH ×4 (10:51→17:51)
[2019-01-27] MEDS: LEVETIRACETAM (250 MG) 250 MG TABLET PO SCH ×2 (10:55→21:12)
--- NOTE | 2019-01-27 11:42 | NUR ---
MS RN NOTES POTASSIUM LEVEL IS 3 TODAY. ORDERED K DUR TAB 80MEQ PO.FIRST DOSE OF POTASSIUM 20 MEQ IS GIVEN,PT REFUSED REMAIN DOSES,COMPLAINTS OF BAD TASTE.OFFERED X3 WITH VANILLA FLAVOR ,EXPLAIN THE RISK AND BENEFITS X3,STILL REFUSED. MADE AWARE.
--- NOTE | 2019-01-27 12:00 | NUR ---
PT HAS ORDER FOR POTASSIUM CHLORIDE 20 MEQ EXTENDED RELEASE. PT IS ON MECHANICAL SOFT DIET AND CAN NOT SWALLOW. PHARMACY INFORMED AND ORDER FOR IV ROUTE PLACED.
[2019-01-27 16:00] VITALS: BP_SYST 162; BP_SYST 97; BP_DIAS 58; BP_DIAS 72
--- NOTE | 2019-01-27 17:00 | NUR ---
RN MS NOTE VANCOMYCIN HOLD DUE TO HIGH VANCO TROUGH. PHARMACY IS AWARE.
[2019-01-27] MEDS: POTASSIUM CL. PREMIX PERIPHER. 50 ML IV SCH ×2 (17:30→17:33)
--- NOTE | 2019-01-27 17:30 | NUR ---
RN MS NOTE PT REFUSED TO TAKE THE SEND BAG OF POTASSIUM IV B/C OF BURNING. ICE PACK WAS PLACED AFTER THE FIRST IV DOSE. PT VERBALIZED RELIEF OF PAIN. WILL ASK LATER TO RUN THE SECOND BAG OF POTASSIUM.
[2019-01-27] MEDS: RIVAROXABAN 10 MG TABLET PO SCH (17:49)
[2019-01-27 20:00] VITALS: BP 117/77
--- NOTE | 2019-01-27 20:00 | NUR ---
RN OPENING NOTES RECEIVED REPORT FROM ROSIBEL ESPINOZA. PATIENT A/A/O X1-2, ABLE TO VERBALIZE SOME NEEDS AND STATE PAIN. BREATHING EVEN & UNLABORED, TOLERATING ROOM AIR. DENIES ANY SOB OR DIFFICULTY BREATHING. RADIAL PULSES PRESENT. RIGHT SHOULDER IV #20 INTACT & PATENT W/ DRESSING CDI, SALINE LOCKED. KELLEY CATH DRAINING CLEAR, YELLOW URINE. DENIES ANY PAIN OR DISCOMFORT @ THIS TIME & REFUSED TO BE TURNED & REPOSITIONED @ THIS TIME. WILL OFFER AGAIN LATER. SAFETY MEASURES IN PLACE W/ SIDE RAILS UP & BED ALARM ON. WILL CONTINUE TO MONITOR.
--- NOTE | 2019-01-27 20:11 | NUR ---
MS RN CLOSING NOTES PATIENT IN BED A/OX1. PT REFUSED TO PUT THE NC AND KEEP REMOVING THAT. ON ROOM AIR SATURATING WELL. NO SIGN OF RESPIRATORY DISTRESS OR SOB NOTED AT THIS TIME. NO ACUTE CHANGE OF CONDITION NOTED DURING THE SHIFT. LARGE AMOUNTS OF URINE OUTPUT. PT REFUSED THE POTASSIUM IV AGAIN. BED IN LOW LOCKED POSITION, CALL LIGHT WITHIN REACH. WILL ENDORSE TO DIRECTOR OPERATING ROOM FOR JORDON.
[2019-01-27] MEDS: IPRATROPIUM NEB FS 0.5 MG/2.5 ML AMPUL.NEB NEB PRN (20:14)
[2019-01-27] MEDS ORDERED: POTASSIUM CL. PREMIX PERIPHER. 50 ML IV SCH (21:00)
[2019-01-27] MEDS ORDERED: POTASSIUM CHLORIDE 10 MEQ/50 ML PREMIXED IVPB FOR PERIPHERAL LINE IV ONE (21:00)
[2019-01-27] MEDS: ACETAMINOPHEN 325 MG TABLET PO PRN (21:12)
[2019-01-27] MEDS: ATORVASTATIN 10 MG TABLET PO SCH (21:12)
[2019-01-27] MEDS: POLYETHYLENE GLYCOL 3350 17 GM POWD.PACK PO SCH (21:13)
--- NOTE | 2019-01-27 21:30 | NUR ---
RN NOTES CALLED AFTER HOUR PHARMACY & INFORMED PHARMACIST THAT MARBLE SETTER HELPER RN WILL REATTEMPT TO ADMINISTER 2ND BAG OF IV POTASSIUM. PER PHARMACIST, RE-ORDER X1 BAG OF IV POTASSIUM AND ADMINISTER. CHARGE NURSE AWARE.
--- NOTE | 2019-01-27 22:30 | NUR ---
RN NOTES PATIENT TOLERATED IV POTASSIUM W/ NO COMPLAINTS OF BURNING SENSATION OR PAIN. ABLE TO ADMINISTER 2ND BAG COMPLETELY.
[2019-01-28] MEDS: PIPERACILLIN /TAZOBACTAM 3.375 G in IV D5W 50 ML IV SCH ×4 (00:32→18:11)
[2019-01-28 04:00] VITALS: BP 105/57
[2019-01-28] MEDS: VANCOMYCIN 1 GM in IV D5W 250 ML IV SCH (06:00)
--- NOTE | 2019-01-28 06:00 | NUR ---
RN NOTES IV VANCO NON-ADMINISTERED D/T VANCO TROUGH = 23.
[2019-01-28 06:23] LABS: BASOPHILS % (AUTO) 0.8 % (0.0-2.0); EOSINOPHILS % (AUTO) 2.5 % (0.0-6.0); HEMATOCRIT 34 % (39-51); HEMOGLOBIN 11.4 g/dL (13.5-17.5); LYMPHOCYTES # (AUTO) 1.4 /CMM (0.8-4.8); LYMPHOCYTES % (AUTO) 46.3 % (20.0-44.0); MEAN CORPUSCULAR HGB CONC 34 g/dl (31.0-36.0); MEAN CORPUSCULAR VOLUME 97 fL (80-96); MONOCYTES # (AUTO) 0.4 /CMM (0.1-1.30); MONOCYTES % (AUTO) 12.9 % (2.0-12.0); NEUTROPHILS # (AUTO) 1.1 /CMM (1.8-8.9); NEUTROPHILS % (AUTO) 37.5 % (43.0-81.0); PLATELET COUNT (AUTO) 157 /CMM (150-450); RED BLOOD CELL COUNT(AUTO) 3.48 MIL/uL (4.5-6.0)
[2019-01-28 06:58] LABS: ALBUMIN 2.4 g/dL (3.4-5.0); BILIRUBIN,TOTAL 0.4 mg/dL (0.2-1.0); CALCIUM, SERUM 8.1 mg/dL (8.5-10.1); CREATININE 0.9 mg/dL (0.6-1.3); MAGNESIUM 1.9 mg/dL (1.8-2.4); PHOSPHORUS 3.1 mg/dL (2.5-4.9); TOTAL PROTEIN, SERUM 6.5 g/dL (6.4-8.2)
[2019-01-28 07:07] LABS: POTASSIUM 2.8 mmol/L (3.5-5.1)
--- NOTE | 2019-01-28 07:46 | NUR ---
RN OPENING NOTES RECEIVED PATIENT RESTING IN BED COMFORTABLY. DNR/DNI. HE IS AOX2, VERBAL, AND IN A GOOD MOOD. HE IS ON RA, SHOWS NO S/SX OF RESP DISTRESS OR SOB. HE IS ALLERGIC TO DIVALPROEX SODIUM. HE HAS BLE EDEMA. SUPRAPUBIC CATHETER IN PLACE, NEEDS TO BE FLUSHED WITH 60 ML OF WATER Q12H. SKIN IS INTACT. HE HAS A R SHOULDER 20 G SL. SAFETY MEASURES HAVE BEEN IMPLEMENTED, CALL LIGHT WITHIN REACH, BED IN LOWEST AND LOCKED POSITION, SIDE RAILS UP X2, WILL CONTINUE TO MONITOR FOR ANY CHANGES.
[2019-01-28 08:00] VITALS: BP 100/68
[2019-01-28] MEDS: DOCUSATE SODIUM 100 MG CAPSULE PO SCH ×2 (08:30→17:18)
[2019-01-28] MEDS: LACOSAMIDE 50 MG TABLET PO SCH ×2 (08:31→17:16)
[2019-01-28] MEDS: FERROUS SULFATE (325 MG) 325 MG/TAB TABLET PO SCH (08:31)
[2019-01-28] MEDS: LEVETIRACETAM (250 MG) 250 MG TABLET PO SCH ×2 (08:31→21:10)
[2019-01-28] MEDS: OXCARBAZEPINE 150 MG TABLET PO SCH ×2 (08:32→21:09)
[2019-01-28] MEDS: METOLAZONE 2.5 MG TABLET PO SCH (08:32)
[2019-01-28] MEDS: MAGNESIUM HYDROXIDE 30 ML UDC PO SCH (08:33)
--- NOTE | 2019-01-28 09:01 | NUR ---
SPOKE WITH DR RAMÍREZ DURING ROUNDS IN REGARDS TO PT'S POTASSIUM LEVEL OF 2.8, HE SAID PHARMACY PUT IN THE REPLACEMENT ORDER. WILL FOLLOW UP WITH PHARMACY.
[2019-01-28] MEDS: POTASSIUM CHLORIDE 20 MEQ TAB.PRT.SR PO SCH ×5 (10:19→14:00)
[2019-01-28] MEDS: FUROSEMIDE 40 MG/4 ML VIAL IV SCH ×2 (12:33→17:16)
[2019-01-28] MEDS: VANCOMYCIN 0.75 GM in IV D5W 250 ML IV SCH (13:53)
[2019-01-28 16:00] VITALS: BP 108/76
[2019-01-28] MEDS ORDERED: POTASSIUM CHLORIDE 20 MEQ TAB.PRT.SR PO ONE (16:00)
--- NOTE | 2019-01-28 16:49 | NUR ---
FINAL DOSE OF POTASSIUM 20 MEQ GIVEN AT 1600
[2019-01-28] MEDS: RIVAROXABAN 10 MG TABLET PO SCH (17:17)
--- NOTE | 2019-01-28 19:26 | NUR ---
RN CLOSING NOTES PATIENT IS RESTING IN BED COMFORTABLY, SHOWS NO S/SX OF DISTRESS, PAIN, OR SOB. PT WAS AT BEDSIDE THROUGHOUT MOST OF THE DAY. PATIENTS NEEDS HAVE BEEN MET. SUPRAPUBIC CATHETER WAS IRRIGATED TODAY, POTASSIUM WAS REPLACED. SAFETY MEASURES HAVE BEEN IMPLEMENTED, CALL LIGHT WITHIN REACH, BED IN LOWEST AND LOCKED POSITION, SIDE RAILS UP X2, ENDORSED TO NIGHTSHIFT NURSE.
[2019-01-28 20:00] VITALS: BP 127/80
--- NOTE | 2019-01-28 20:17 | NUR ---
RN OPENING NOTES RECEIVED REPORT FROM KAREN ESPINOZA. PATIENT A/A/O X1-2 W/ INTERMITTENT CONFUSION BUT ABLE TO VERBALIZE SOME NEEDS AND STATE PAIN. BREATHING EVEN & UNLABORED, TOLERATING ROOM AIR. DENIES ANY SOB OR DIFFICULTY BREATHING. RADIAL PULSES PRESENT. RIGHT SHOULDER IV #20 INTACT & PATENT W/ DRESSING CDI, SALINE LOCKED. KELLEY CATH DRAINING CLEAR, YELLOW URINE. DENIES ANY PAIN OR DISCOMFORT @ THIS TIME. TURNED & REPOSITIONED FOR COMFORT. SAFETY MEASURES IN PLACE W/ SIDE RAILS UP & BED ALARM ON. WILL CONTINUE TO MONITOR.
[2019-01-28] MEDS: ATORVASTATIN 10 MG TABLET PO SCH (21:10)
[2019-01-28] MEDS: POLYETHYLENE GLYCOL 3350 17 GM POWD.PACK PO SCH (21:11)
[2019-01-29] MEDS: PIPERACILLIN /TAZOBACTAM 3.375 G in IV D5W 50 ML IV SCH ×3 (00:15→11:04)
[2019-01-29] MEDS: VANCOMYCIN 0.75 GM in IV D5W 250 ML IV SCH (02:40)
[2019-01-29 04:00] VITALS: BP 98/69
--- NOTE | 2019-01-29 07:30 | NUR ---
MS RN NOTES RECEIVED PT IN BED, A/OX1-2. ON ROOM AIR O2 SAT WNL. SOB WHEN HOB FLAT. CHRISTY #20 IV TKO. NO S/SX OF INFECTION. LUNGS CLEAR TO AUSCULTATION. SUPRAPUBIC CATHETER DRAINING CLEAR YELLOW URINE. BED IN LOCKED/LOWEST POSITION. CALL LIGHT IN REACH. WILL CONT TO MONITOR.
[2019-01-29 07:44] LABS: CALCIUM, SERUM 8.1 mg/dL (8.5-10.1); CREATININE 0.9 mg/dL (0.6-1.3); POTASSIUM 3.1 mmol/L (3.5-5.1)
[2019-01-29 08:00] VITALS: BP 113/67
--- NOTE | 2019-01-29 08:30 | NUR ---
MS RN NOTES PT REFUSED AM MEDS. ONLY HAD 1/2 OF CRUSHED MEDS IN CHOCOLATE SAUCE. REFUSED MILK OF MAGNESIA.
[2019-01-29] MEDS: OXCARBAZEPINE 150 MG TABLET PO SCH (08:40)
[2019-01-29] MEDS: LACOSAMIDE 50 MG TABLET PO SCH (08:41)
[2019-01-29] MEDS: POTASSIUM CHLORIDE 10 MEQ TABLET.SA PO SCH (08:41)
[2019-01-29] MEDS: DOCUSATE SODIUM 100 MG CAPSULE PO SCH (08:41)
[2019-01-29] MEDS: FUROSEMIDE 40 MG/4 ML VIAL IV SCH (08:41)
[2019-01-29] MEDS: FERROUS SULFATE (325 MG) 325 MG/TAB TABLET PO SCH (08:41)
[2019-01-29] MEDS: MAGNESIUM HYDROXIDE 30 ML UDC PO SCH ×2 (08:42→09:00)
[2019-01-29] MEDS: METOLAZONE 2.5 MG TABLET PO SCH (08:42)
[2019-01-29] MEDS: LEVETIRACETAM (250 MG) 250 MG TABLET PO SCH (08:42)
[2019-01-29] MEDS: POTASSIUM CHLORIDE 20 MEQ TAB.PRT.SR PO SCH ×4 (08:45→13:37)
[2019-01-29] MEDS ORDERED: ENOXAPARIN SODIUM 80 MG/0.8 ML DISP.SYRIN SQ SCH (10:30)
[2019-01-29] MEDS: ACETAMINOPHEN 325 MG TABLET PO PRN (13:38)
--- NOTE | 2019-01-29 15:00 | NUR ---
MS RN NOTES PER PT'S REQUEST: NO IV ANTIBIOTICS. MD ORDERED LEVAQUIN 500MG/ PO DAILY X5 DAYS
--- NOTE | 2019-01-29 15:00 | NUR ---
MS RN NOTES PT DISCHARGED WITH DISCHARGE INSTRUCTIONS/MED RECON/ IV REMOVED/ PICS OF WOUNDS TAKEN/ FAMILY NOTIFIED. AT BEDSIDE. NO BELONGINGS WERE ADMITTED/DISCHARGED WITH PATIENT. PT DISCHARGED WITH AMBULANCE ON R[facility] ALEXIS CONTRERAS AT [facility] NOTIFIED.
== END 2019-01-29 15:34 | DRG 177 ==
LOC: ER 14:23 → TELE1 15:57 → MEDSG1 01-24 09:15
PROVIDERS: ADMIT Nurse Practitioner Acute Care; ATTEND Internal Medicine
DX: J69.0 Pneumonitis due to inhalation of food and vomit (principal); J96.01 Acute respiratory failure with hypoxia; I21.A1 Myocardial infarction type 2; G93.41 Metabolic encephalopathy; I42.9 Cardiomyopathy, unspecified; E44.0 Moderate protein-calorie malnutrition; D68.59 Other primary thrombophilia; J98.11 Atelectasis; I82.411 Acute embolism and thrombosis of right femoral vein; E66.9 Obesity, unspecified; I11.0 Hypertensive heart disease with heart failure; I25.10 Atherosclerotic heart disease of native coronary artery without angina pectoris; I48.2 Chronic atrial fibrillation; I50.9 Heart failure, unspecified; E11.649 Type 2 diabetes mellitus with hypoglycemia without coma; D64.9 Anemia, unspecified; E78.5 Hyperlipidemia, unspecified; F03.90 Unspecified dementia, unspecified severity, without behavioral disturbance, psychotic disturbance, mood disturbance, and anxiety; Z86.73 Personal history of transient ischemic attack (TIA), and cerebral infarction without residual deficits; Z90.49 Acquired absence of other specified parts of digestive tract; Z66 Do not resuscitate; I34.0 Nonrheumatic mitral (valve) insufficiency; N31.9 Neuromuscular dysfunction of bladder, unspecified; G40.909 Epilepsy, unspecified, not intractable, without status epilepticus; G35 Multiple sclerosis; I25.2 Old myocardial infarction; Z68.27 Body mass index [BMI] 27.0-27.9, adult; E87.6 Hypokalemia; Z79.01 Long term (current) use of anticoagulants; N40.0 Benign prostatic hyperplasia without lower urinary tract symptoms; K40.90 Unilateral inguinal hernia, without obstruction or gangrene, not specified as recurrent
CPT/HCPCS: 36415; 71045-TC; 80048-TC; 80053-TC; 80076-TC; 80202-TC; 83735-TC; 83880; 84100-TC; 84484-TC; 85025-TC; 87040-TC; 87081-TC; 92526; 92611-TC; 93970-TC; 94799-TC; 97112-TC; 97530-TC; G0378; J1650; J1940; J1953; J2060; J2543; J2930; J3370; J3480; J3490; J7030; J7050; J7060

== ENCOUNTER 2019-05-29 17:20 | Inpatient (IN) | payer OTHER, MEDICARE ==
[~2019-05-29] VITALS: Ht 175.3 cm; Wt 85.3 kg
[~2019-05-29 17:20] MED LIST changes: -ALBU2.5V38 IH; +AMIN30LI2 PO; +ATOR10TA PO; +BACL10TA PO; +BENEP PO; +CARV3.122 PO; -CHOL20004 PO; -DILT300C57 PO; +DILT30TA2 PO; +DOCU-141 PO; +FERR325T23 PO; -FURO-144 PO; +IPRA3AMP23 IH; -LINA290C PO; -LOTE5DRO4 EACHEYE; +LUBI8CAP PO; +MAGN400O6 PO; +METO2.5T2 PO; -METO25TA20 PO; +MULT-447 PO; +NA P133E RC; -PIPERACILLIN /TAZOBACTAM 3.375 G in IV D5W 50 ML IV SCH; +POLY17PO4 PO; +POTA10TA15 PO; -RIVA10TA PO; -SULF1TAB48 PO
--- NOTE | 2019-05-29 17:35 | NUR ---
MATTHEW FROM [facility] C/O GENERALIZE EDEMA STARTED YESTERDAY PER REPORT, PT TO BED 12, NAD NOTED, VSS ,PENDING MD CALDERÓN
[2019-05-29] MEDS ORDERED: FUROSEMIDE 40 MG/4 ML VIAL IV ONE (18:00)
[2019-05-29] MEDS ORDERED: APIX5TAB PO (18:22)
[2019-05-29] MEDS ORDERED: ASCO500T9 PO (18:22)
[2019-05-29] MEDS ORDERED: SPIR25TA PO (18:22)
[2019-05-29] MEDS ORDERED: FURO-144 PO (18:22)
[2019-05-29 18:33] LABS: BASOPHILS # (AUTO) 0.2 /CMM (0.0-0.2); BASOPHILS % (AUTO) 3.6 % (0.0-2.0); EOSINOPHILS % (AUTO) 1.3 % (0.0-6.0); HEMATOCRIT 33 % (39-51); HEMOGLOBIN 11.2 g/dL (13.5-17.5); LYMPHOCYTES # (AUTO) 0.7 /CMM (0.8-4.8); MEAN CORPUSCULAR HGB CONC 34 g/dl (31.0-36.0); MEAN CORPUSCULAR VOLUME 100 fL (80-96); MONOCYTES # (AUTO) 0.5 /CMM (0.1-1.30); MONOCYTES % (AUTO) 8.3 % (2.0-12.0); NEUTROPHILS # (AUTO) 4.2 /CMM (1.8-8.9); NEUTROPHILS % (AUTO) 74.8 % (43.0-81.0); PLATELET COUNT (AUTO) 220 /CMM (150-450); RED BLOOD CELL COUNT(AUTO) 3.34 MIL/uL (4.5-6.0); WHITE BLOOD COUNT (AUTO) 5.6 K/uL (4.3-11.0)
[2019-05-29] MEDS ORDERED: FUROSEMIDE 40 MG/4 ML VIAL ONE (18:47)
[2019-05-29 18:52] LABS: CALCIUM, SERUM 8.2 mg/dL (8.5-10.1); POTASSIUM 3.7 mmol/L (3.5-5.1)
[2019-05-29 18:59] LABS: BILIRUBIN,DIRECT 0.2 mg/dL (0.0-0.2); BILIRUBIN,TOTAL 0.5 mg/dL (0.2-1.0); TOTAL PROTEIN, SERUM 7.3 g/dL (6.4-8.2)
--- NOTE | 2019-05-29 19:45 | NUR ---
CALLED [facility], PAGED REDDY
--- NOTE | 2019-05-29 19:50 | NUR ---
CALLED NURSING SUP FOR BED
--- NOTE | 2019-05-29 20:21 | NUR ---
BED ASSIGNMENT 307-2
--- NOTE | 2019-05-29 20:33 | NUR ---
REPORT CALLED TO FIELD SUPPORT SPECIALISTALEXIS WALSH. WILL TRANSPORT PT VIA [facility].
[2019-05-29 21:25] VITALS: BP 135/74
[2019-05-29] MEDS ORDERED: MAGNESIUM HYDROXIDE 30 ML UDC PO PRN (21:30)
[2019-05-29] MEDS ORDERED: ZOLPIDEM TARTRATE 5 MG TABLET PO PRN (21:30)
[2019-05-29] MEDS ORDERED: NA PHOS,M-B/NA PHOS,DI-BA 1 EA ENEMA RC PRN (21:30)
[2019-05-29] MEDS ORDERED: Z GUARD REMEDY 2 OZ OINT TP PRN (21:30)
[2019-05-29] MEDS ORDERED: MORPHINE SULFATE INJ 2 MG/ML DISP.SYRIN IV PRN (21:30)
[2019-05-29] MEDS ORDERED: MAG HYDROX/AL HYDROX/SIMETH 30 ML UDC PO PRN (21:30)
[2019-05-29] MEDS ORDERED: BISACODYL SUPP (10 MG) 10 MG/SUPP.RECT SUPP.RECT RC PRN (21:30)
[2019-05-29] MEDS ORDERED: ONDANSETRON HCL/PF 4 MG/2 ML VIAL IVP PRN (21:30)
[2019-05-29] MEDS ORDERED: ACETAMINOPHEN 325 MG TABLET PO PRN (21:30)
--- NOTE | 2019-05-29 21:46 | NUR ---
pt transported to 3rd floor
[2019-05-29 22:00] VITALS: BP 135/74
--- NOTE | 2019-05-29 22:00 | NUR ---
beck operatorteacher home therapy notes Received Pt from ER nurse ALEXIS Buchanan. Pt arrived at the unit with a gurney and ACLS protocol. Pt is alert and orientedX1 and confused. Pt's at the bedside. Respiration is normal. No SOB. No S/S of distress noted. Pt came with suprapubic catherer that is leaking. Charge nurse is aware and informed. Pt's has generalized swelling. IV sites at L hand is clean, intact, patent, flush without resistance and SL. Tele monitored showed a-fib controlled. Kemmerer the room to Pt and Pt's and the use of call light. Admission orders received from Dr. Sullivan. Pt's belongings was checked by KORTNEY Hickey and given to Pt's . Seizure precautions is maintained. Safety precautions is maintained. Bed at low position, brakes locked, side rails upX3 and padded and call light is within reach. Will continue to monitor.
--- NOTE | 2019-05-29 22:10 | NUR ---
shells inspector notes Pt and Pt's refused for skin assessment and pictures. Offered multiple times. Made aware risks and benefits. Pt and Pt's keep refusing. Pt's stated Pt has a blister on left leg that is covered with mepilex from [facility] and Pt's refused to have it checked. Pt's also mentioned and stated that Pt's has wound in the sacrum area that is heal already and refused to have it check. pt's stated checked in the morning. Charge nurse is aware and informed.
--- NOTE | 2019-05-29 22:15 | NUR ---
crown pouncer notes Called regional project manager pharmacy twice to have meds verified.
[2019-05-29] MEDS ORDERED: OXCARBAZEPINE 150 MG TABLET PO ONE (23:00)
[2019-05-29] MEDS ORDERED: LACOSAMIDE 50 MG TABLET PO ONE (23:00)
[2019-05-29] MEDS: POLYETHYLENE GLYCOL 3350 17 GM POWD.PACK PO SCH (23:04)
[2019-05-29] MEDS: ATORVASTATIN 10 MG TABLET PO SCH (23:04)
[2019-05-29] MEDS: DOCUSATE SODIUM 100 MG CAPSULE PO SCH (23:05)
[2019-05-29] MEDS: BUMETANIDE INJ 0.25 MG/ML VIAL IV SCH (23:07)
[2019-05-29] MEDS: LEVETIRACETAM (250 MG) 250 MG TABLET PO SCH (23:09)
[2019-05-30] VITALS (7 sets, daily range): BP systolic 107–153; BP diastolic 58–89
[2019-05-30] MEDS: ACETAMINOPHEN 325 MG TABLET PO PRN ×2 (00:11→13:20)
[2019-05-30] MEDS: CARVEDILOL 12.5 MG TABLET PO SCH ×3 (00:12→21:14)
--- NOTE | 2019-05-30 02:11 | NUR ---
power chisel operator notes Contacted Dr. Sullivan for DNR status for Pt. Pt's wants Pt to have DNR status while in the hospital. Received order for DNR status from .
--- NOTE | 2019-05-30 02:15 | NUR ---
shed hand notes Informed and contacted MD regarding Pt's suprapubic catherer is leaking. MD is notified.
[2019-05-30 03:33] LABS: BASOPHILS # (AUTO) 0.1 /CMM (0.0-0.2); BASOPHILS % (AUTO) 2.1 % (0.0-2.0); EOSINOPHILS % (AUTO) 1.1 % (0.0-6.0); HEMATOCRIT 31 % (39-51); HEMOGLOBIN 10.4 g/dL (13.5-17.5); LYMPHOCYTES # (AUTO) 1.1 /CMM (0.8-4.8); LYMPHOCYTES % (AUTO) 22.8 % (20.0-44.0); MEAN CORPUSCULAR HGB CONC 34 g/dl (31.0-36.0); MEAN CORPUSCULAR VOLUME 100 fL (80-96); MONOCYTES # (AUTO) 0.6 /CMM (0.1-1.30); MONOCYTES % (AUTO) 11.2 % (2.0-12.0); NEUTROPHILS # (AUTO) 3.2 /CMM (1.8-8.9); NEUTROPHILS % (AUTO) 62.8 % (43.0-81.0); PLATELET COUNT (AUTO) 179 /CMM (150-450); RED BLOOD CELL COUNT(AUTO) 3.08 MIL/uL (4.5-6.0)
[2019-05-30 03:57] LABS: CALCIUM, SERUM 7.8 mg/dL (8.5-10.1); CREATININE 0.9 mg/dL (0.6-1.3); MAGNESIUM 1.8 mg/dL (1.8-2.4); PHOSPHORUS 3.5 mg/dL (2.5-4.9); POTASSIUM 3.2 mmol/L (3.5-5.1)
--- NOTE | 2019-05-30 04:00 | NUR ---
overhead foreman notes Skin assessment done and pictures taken and placed in Pt's chart. Skin care provided. Left leg blister cleaned with NS, pat dry, xeroform and mepilex. Wound care consult is order. Will continue to monitor.
--- NOTE | 2019-05-30 04:40 | NUR ---
hospital aides and assistants teacher notes Informed and contacted Dr. Sullivan regarding Pt's potassium is 3.2, troponin 1 is 0.102 and BNP 8147. Received order for kdur 40 meq once and cardiology consult in the morning. order carried out.
[2019-05-30] MEDS ORDERED: POTASSIUM CHLORIDE 20 MEQ TAB.PRT.SR PO ONE (05:00)
--- NOTE | 2019-05-30 06:56 | NUR ---
tubing drier closing notes Pt is resting in bed comfortably. Respiration is normal. No SOB. No S/S of distress noted. VS is stable. Tele monitored showed a-fib 85. Routine meds were given as ordered. IV sites at L hand is clean, intact, patent and SL. Skin care provided. Kept Pt clean, dry and comfortable. Seizure precautions is maintained. Turned and repositioned Q 2hr. Safety precautions is maintained. Bed at low position, brakes locked, side rails upX3 and padded and call light is within reach. Will endorse to morning nurse for JORDON.
[2019-05-30] MEDS ORDERED: LACTULOSE 10 G/15 ML UDC (PYXIS) PO PRN (07:00)
--- NOTE | 2019-05-30 07:44 | NUR ---
TELECASTING TECHNICIAN OPENING NOTES RECEIVED PATIENT IN BED, AWAKE, A/O X1 (SELF ONLY). PATIENT ON ROOM AIR BREATHING NORMALLY WITH NO S/S OF DISTRESS OR SOB NOTED AT THIS TIME. SEIZURE PRECAUTIONS IN PLACE. PATIENT IS ON TELE MONITORING SHOWING A-FIB IN MID 80S. LEFT HAND IV SITE INTACT AND FLUSHING WELL WITH NO SIGNS OF INFILTRATION NOTED AT THIS TIME. SAFETY PRECAUTIONS IN PLACE: BED IN LOW POSITION AND LOCKED, RAILS UP X 3, CALL LIGHT WITHIN REACH. WILL CONTINUE TO MONITOR PATIENT.
--- NOTE | 2019-05-30 08:26 | NUR ---
VAT OVERHAULER NOTES PT SEEN AND EXAMINED BY DR. CHANDLER MD AWARE OF ABNORMAL LABS AND LEAKING SUPRAPUBIC CATH, PER MD, MAY CHANGE KELLEY CATH TO A BIGGER SIZE.
[2019-05-30] MEDS ORDERED: APIXABAN 5 MG TABLET PO SCH (09:00)
[2019-05-30] MEDS: LEVETIRACETAM (250 MG) 250 MG TABLET PO SCH ×2 (09:30→21:13)
[2019-05-30] MEDS: APIXABAN 5 MG TABLET PO SCH ×2 (09:31→16:13)
[2019-05-30] MEDS: MULTIVIT W/MINERALS 1 TAB TABLET PO SCH (09:32)
[2019-05-30] MEDS: LACOSAMIDE 50 MG TABLET PO SCH ×2 (09:32→21:13)
[2019-05-30] MEDS: ASCORBIC ACID 500 MG TABLET PO SCH (09:32)
[2019-05-30] MEDS: DOCUSATE SODIUM 100 MG CAPSULE PO SCH ×2 (09:33→16:12)
[2019-05-30] MEDS: OXCARBAZEPINE 150 MG TABLET PO SCH ×2 (09:33→21:13)
[2019-05-30] MEDS: SPIRONOLACTONE 25 MG TABLET PO SCH (09:33)
[2019-05-30] MEDS: FERROUS SULFATE (325 MG) 325 MG/TAB TABLET PO SCH (09:34)
[2019-05-30] MEDS: BUMETANIDE INJ 0.25 MG/ML VIAL IV SCH ×2 (09:35→16:11)
[2019-05-30] MEDS: MAGNESIUM HYDROXIDE 30 ML UDC PO SCH (09:35)
--- NOTE | 2019-05-30 15:20 | NUR ---
SQL PROGRAMMER NOTES REPLACED PT'S SUPRAPUBIC CATH, FR 20, TOLERATED PROCEDURE WELL, DRAINING MINIMALLY WITH YELLOW COLORED URINE, URINE SAMPLE SENT TO LAB FOR UA, WILL CONTINUE TO MONITOR.
[2019-05-30 15:28] LABS: APPEARANCE,URINE CLOUDY (CLEAR); BILIRUBIN,URINE NEGATIVE (NEGATIVE); BLOOD, URINE SMALL Ery/uL (NEGATIVE); COLOR,URINE YELLOW (YELLOW); KETONES,URINE NEGATIVE (NEGATIVE); LEUKOCYTE ESTERASE ,URINE MODERATE (NEGATIVE); NITRITE, URINE POSITIVE (NEGATIVE); PH,URINE 8.5 (5.0-8.0); PROTEIN,URINE TRACE mg/dl (NEGATIVE); UGLUCOSE NEGATIVE (NEGATIVE); UROBILINOGEN,URINE 0.2 EU/dL (0.2)
[2019-05-30] MEDS: PROSOURCE / PROSTAT (PYXIS) 30 ML UDC PO SCH ×2 (15:28→17:29)
[2019-05-30 16:03] LABS: BACTERIA,URINE 4+ /HPF (None Seen); SQUAMOUS EPITHELIAL CELL,UR 0-2 /HPF (None Seen); TRIPLE PHOSPHATE CRYSTAL,UR Few /HPF (None Seen); WBC,URINE 21-50 /HPF (0-3)
--- NOTE | 2019-05-30 18:48 | NUR ---
STAFF TRAINER CLOSING NOTES PATIENT IN BED, AWAKE, A/O X 1. AT BEDSIDE. PATIENT ON RA BREATHING EVENLY WITH NO ACUTE SIGNS OF DISTRESS NOTES. VS ARE STABLE. TELE MONITOR SHOWS A-FIB IN THE 80S. IV SITE ON L HAND IS PATENT AND INTACT, FLUSHING WELL. SUPRAPUBIC CATHETER IN PLACE, DRAINING YELLOW URINE. SEIZURE PRECAUTIONS ARE IN PLACE. SAFETY MEASURES MAINTAINED: BED IN LOW POSITION AND LOCKED, RAILS UP X 3, CALL LIGHT WITHIN REACH. WILL ENDORSE TO GENETIC COUNSELOR NURSE.
--- NOTE | 2019-05-30 19:20 | NUR ---
ADVANCED MANUFACTURING ASSOCIATE OPENING NOTES RECEIVED PATIENT FROM MORNING SHIFT, ALERT AND ORIENTED X 1, CONFUSED VERBALLY RESPONSIVE. BREATHING REGULAR AND UNLABORED ON ROOM AIR. LEFT HAND G22 IV LINE INTACT AND PATENT, FLUSHING WELL WITH NO BLEEDING OR S/S OF INFILTRATION/INFECTION NOTED. ON CARDIAC MONITORING WITH A.FIB AT 85bpm. SUPRAPUBIC CATH INTACT, STILL LEAKING WITH MINIMAL AMOUNT OF URINE. NO S/S OF PAIN/DISCOMFORT NOTED OF THE TIME. BED LOW AND LOCKED ON SEMI FOWLERS POSITION. CALL LIGHT IN REACH. BED ALARM ON. WILL CONTINUE TO MONITOR.
[2019-05-30] MEDS: ATORVASTATIN 10 MG TABLET PO SCH (21:13)
[2019-05-30] MEDS: POLYETHYLENE GLYCOL 3350 17 GM POWD.PACK PO SCH (21:16)
[2019-05-31 00:23] VITALS: BP 128/81
--- NOTE | 2019-05-31 00:40 | NUR ---
IV THERAPY NURSE NOTES NOTED WITH 100.1 BODY TEMPERATURE. COOLING MEASURES PROVIDED. TYLENOL 650MG GIVEN BY MOUTH. WILL CONTINUE TO MONITOR.
[2019-05-31] MEDS: ACETAMINOPHEN 325 MG TABLET PO PRN (00:47)
--- NOTE | 2019-05-31 04:00 | NUR ---
VALIDATION ANALYST NOTES RECHECK BODY TEMPERATURE WITH LATEST RESULT 98.9. WILL CONTINUE TO MONITOR.
[2019-05-31 04:10] VITALS: BP 134/87
--- NOTE | 2019-05-31 06:35 | NUR ---
DIVER ASSISTANT CLOSING NOTES PATIENT IN BED ALERT AND ORIENTED X 1, CONFUSED VERBALLY RESPONSIVE. BREATHING REGULAR AND UNLABORED ON ROOM AIR. LEFT HAND G22 IV LINE INTACT AND FLUSHING WELL. MAINTAINED ON CARDIAC MONITORING WITH A.FIB AT 90bpm. SUPRAPUBIC CATH INTACT WITH MINIMAL LEAKING. URINARY OUTPUT OF 600CC CLEAR YELLOW URINE ON BAG. NO S/S OF PAIN/DISCOMFORT NOTED OF THE TIME. LATEST BODY TEMPERATURE 98.2. BED LOW AND LOCKED ON SEMI FOWLERS POSITION. CALL LIGHT IN REACH. BED ALARM ON. WILL ENDORSE TO MORNING SHIFT FOR JORDON.
--- NOTE | 2019-05-31 07:20 | NUR ---
ECONOMICS CONSULTANT OPENING NOTES RECEIVED PATIENT IN BED ALERT AND ORIENTED X 1, CONFUSED VERBALLY RESPONSIVE. BREATHING REGULAR AND UNLABORED ON ROOM AIR. LEFT HAND G22 IV LINE INTACT AND FLUSHING WELL. MAINTAINED ON CARDIAC MONITORING WITH A.FIB NOTED. SUPRAPUBIC CATH INTACT WITH NO LEAKING. NO S/S OF PAIN/DISCOMFORT NOTED OF THE TIME. BED LOW AND LOCKED ON SEMI FOWLERS POSITION. CALL LIGHT IN REACH. BED ALARM ON. WILL CONTINUE TO MONITOR.
[2019-05-31 08:00] VITALS: BP_SYST 106; BP_SYST 110; BP_DIAS 71; BP_DIAS 78
[2019-05-31] MEDS: CARVEDILOL 12.5 MG TABLET PO SCH ×2 (09:03→21:10)
[2019-05-31] MEDS: ASCORBIC ACID 500 MG TABLET PO SCH (09:03)
[2019-05-31] MEDS: LEVETIRACETAM (250 MG) 250 MG TABLET PO SCH ×2 (09:20→21:10)
[2019-05-31] MEDS: MULTIVIT W/MINERALS 1 TAB TABLET PO SCH (09:51)
[2019-05-31] MEDS: SPIRONOLACTONE 25 MG TABLET PO SCH (09:51)
[2019-05-31] MEDS: LACOSAMIDE 50 MG TABLET PO SCH ×2 (09:51→21:10)
[2019-05-31] MEDS: OXCARBAZEPINE 150 MG TABLET PO SCH ×2 (09:51→21:10)
[2019-05-31] MEDS: FERROUS SULFATE (325 MG) 325 MG/TAB TABLET PO SCH (09:52)
[2019-05-31] MEDS: PROSOURCE / PROSTAT (PYXIS) 30 ML UDC PO SCH ×2 (09:52→17:36)
[2019-05-31] MEDS: DOCUSATE SODIUM 100 MG CAPSULE PO SCH ×2 (09:52→17:35)
[2019-05-31] MEDS: HYDROCODONE/APAP 5/325MG 1 EACH TABLET PO PRN (09:52)
[2019-05-31] MEDS: MAGNESIUM HYDROXIDE 30 ML UDC PO SCH (09:53)
[2019-05-31] MEDS: BUMETANIDE INJ 0.25 MG/ML VIAL IV SCH (09:53)
[2019-05-31] MEDS: CEFTRIAXONE 1 G in IV D5W 50 ML IV SCH (09:53)
[2019-05-31] MEDS: APIXABAN 5 MG TABLET PO SCH ×2 (09:54→17:37)
--- NOTE | 2019-05-31 10:15 | NUR ---
MS RN NOTE: PATIENT D/C FROM TELE TO MED SURG
[2019-05-31] MEDS: POTASSIUM CHLORIDE 20 MEQ TAB.PRT.SR PO SCH ×3 (12:49→15:10)
[2019-05-31] MEDS: FUROSEMIDE 100 MG/10 ML VIAL IV SCH ×3 (12:50→19:30)
[2019-05-31 16:00] VITALS: BP 124/82
--- NOTE | 2019-05-31 16:00 | NUR ---
MS RN NOTE: PATIENT WILL BE SEEN TOMORROW BY DR. GUTIERREZ FOR SUPRPUBIC CATHETER EVALUATION. REPORTED NO LEAKING OBSERVED. SCROTAL EDEMA AND LOWER EXTREMITY NOTED AND REPORTED.
[2019-05-31] MEDS: SILVER SULFADIAZINE CREAM 25 GM TUBE TP SCH (17:36)
--- NOTE | 2019-05-31 19:10 | NUR ---
MS RN NOTE RECEIVED PT IN STABLE CONDITION A/O X1, CURRENTLY IN BED. NO S/S OF SOB OR DISTRESS, NO INDICATION OF PAIN. IV IN L HAND #[address] S/L. SUPRAPUBIC CATH IN PLACE WITH CLEAR YELLOW URINE DRAINING. ALL CURRENT NEEDS ATTENDED TO. SAFETY PRECAUTIONS IN PLACE, WILL REPOSITIONS PT PER PROTOCOL. WILL CONT. TO MONITOR.
--- NOTE | 2019-05-31 19:15 | NUR ---
MS RN CLOSING NOTES PATIENT STILL IN BED ALERT AND ORIENTED X 1, CONFUSED VERBALLY RESPONSIVE. BREATHING REGULAR AND UNLABORED ON ROOM AIR. LEFT HAND G22 IV LINE INTACT AND FLUSHING WELL. SUPRAPUBIC CATH INTACT WITH NO LEAKING NOTED ON SHIFT. 1 BM ON SHIFT. NO S/S OF PAIN/DISCOMFORT NOTED OF THE TIME. BED LOW AND LOCKED ON SEMI FOWLERS POSITION. CALL LIGHT IN REACH. BED ALARM ON. DR. GUTIERREZ CONFIRMED TO SEE PATIENT TOMORROW FOR CONSULT. ENDORSED TO ONCOMING SHIFT FOR JORDON
[2019-05-31 20:44] VITALS: BP 127/64
[2019-05-31] MEDS: POLYETHYLENE GLYCOL 3350 17 GM POWD.PACK PO SCH (21:09)
[2019-05-31] MEDS: ATORVASTATIN 10 MG TABLET PO SCH (21:11)
[2019-05-31] MEDS: CEFAZOLIN 1 GM in IV D5W 50 ML IV SCH (23:48)
--- NOTE | 2019-06-01 06:14 | NUR ---
MS RN NOTE PT REMAINS IN STABLE CONDITION A/O X1, CURRENTLY IN BED. NO S/S OF SOB OR DISTRESS, NO INDICATION OF PAIN. IV IN L HAND #[address] S/L. SUPRAPUBIC CATH IN PLACE WITH CLEAR YELLOW URINE DRAINING. ALL CURRENT NEEDS ATTENDED TO. SAFETY PRECAUTIONS IN PLACE, REPOSITIONED PT PER PROTOCOL. WILL CONT. TO MONITOR AND ENDORSE TO NEXT SHIFT FOR JORDON.
[2019-06-01 06:17] LABS: BASOPHILS % (AUTO) 0.6 % (0.0-2.0); EOSINOPHILS % (AUTO) 1.4 % (0.0-6.0); HEMATOCRIT 33 % (39-51); LYMPHOCYTES # (AUTO) 1.2 /CMM (0.8-4.8); LYMPHOCYTES % (AUTO) 20.7 % (20.0-44.0); MEAN CORPUSCULAR HGB CONC 33 g/dl (31.0-36.0); MEAN CORPUSCULAR VOLUME 100 fL (80-96); MONOCYTES # (AUTO) 0.6 /CMM (0.1-1.30); NEUTROPHILS # (AUTO) 3.8 /CMM (1.8-8.9); NEUTROPHILS % (AUTO) 67.3 % (43.0-81.0); PLATELET COUNT (AUTO) 190 /CMM (150-450); RED BLOOD CELL COUNT(AUTO) 3.31 MIL/uL (4.5-6.0); WHITE BLOOD COUNT (AUTO) 5.7 K/uL (4.3-11.0)
[2019-06-01 06:25] LABS: ALBUMIN 2.9 g/dL (3.4-5.0); BILIRUBIN,TOTAL 0.5 mg/dL (0.2-1.0); CALCIUM, SERUM 7.9 mg/dL (8.5-10.1); CREATININE 0.8 mg/dL (0.6-1.3); PHOSPHORUS 3.1 mg/dL (2.5-4.9); POTASSIUM 3.3 mmol/L (3.5-5.1); TOTAL PROTEIN, SERUM 7.1 g/dL (6.4-8.2)
--- NOTE | 2019-06-01 07:00 | NUR ---
MS/RN Opening Pt received AOx1, confused, able to response all stimuli. Respiratory even and unlabored, provided suprapubic catheter care, skin is warm to touch and clean/dry. No s/s of adverse reaction observed from ATB therapy. Pt does no c/o pain or discomfort. Intact IV site, kept low position of bed with elevated HOB. Call light within reach, will continue to monitor.
[2019-06-01 07:49] VITALS: BP 115/70
[2019-06-01 08:00] VITALS: BP 115/70
[2019-06-01] MEDS: CEFAZOLIN 1 GM in IV D5W 50 ML IV SCH ×2 (08:10→16:03)
[2019-06-01] MEDS: CEFTRIAXONE 1 G in IV D5W 50 ML IV SCH (08:10)
[2019-06-01] MEDS: DOCUSATE SODIUM 100 MG CAPSULE PO SCH ×2 (08:11→17:21)
[2019-06-01] MEDS: FERROUS SULFATE (325 MG) 325 MG/TAB TABLET PO SCH (08:12)
[2019-06-01] MEDS: ASCORBIC ACID 500 MG TABLET PO SCH (08:12)
[2019-06-01] MEDS: CARVEDILOL 12.5 MG TABLET PO SCH ×2 (08:12→21:00)
[2019-06-01] MEDS: SILVER SULFADIAZINE CREAM 25 GM TUBE TP SCH (08:20)
[2019-06-01] MEDS: PROSOURCE / PROSTAT (PYXIS) 30 ML UDC PO SCH ×2 (08:21→17:23)
[2019-06-01] MEDS: MAGNESIUM HYDROXIDE 30 ML UDC PO SCH (08:21)
[2019-06-01] MEDS: LACOSAMIDE 50 MG TABLET PO SCH ×2 (08:21→21:03)
[2019-06-01] MEDS: LEVETIRACETAM (250 MG) 250 MG TABLET PO SCH ×2 (08:21→21:03)
[2019-06-01] MEDS: MULTIVIT W/MINERALS 1 TAB TABLET PO SCH (08:24)
[2019-06-01] MEDS: OXCARBAZEPINE 150 MG TABLET PO SCH ×2 (08:24→22:35)
[2019-06-01] MEDS: SPIRONOLACTONE 25 MG TABLET PO SCH (08:24)
[2019-06-01] MEDS: FUROSEMIDE 100 MG/10 ML VIAL IV SCH ×3 (08:41→16:03)
[2019-06-01] MEDS: POTASSIUM CHLORIDE 20 MEQ TAB.PRT.SR PO SCH ×4 (08:41→13:01)
[2019-06-01] MEDS: APIXABAN 5 MG TABLET PO SCH ×2 (08:42→17:23)
[2019-06-01 16:00] VITALS: BP 112/75
[2019-06-01] MEDS: prednisoLONE ACET 1% OPHT DROP 5 ML BOTTLE EACHEYE SCH (17:22)
[2019-06-01] MEDS: ACETAMINOPHEN 325 MG TABLET PO PRN (17:24)
--- NOTE | 2019-06-01 17:30 | NUR ---
Patient's asked pain medication for generalized pain, given Tylenol 650 mg. Will continue to monitor.
[2019-06-01] MEDS ORDERED: ENOXAPARIN SODIUM 40 MG/0.4 ML DISP.SYRIN SQ SCH ×2 (18:00)
--- NOTE | 2019-06-01 18:45 | NUR ---
MS/RN Closing note Patient in bed comfortably and at bedside. Continue to monitoring out put via suprapubic catheter, still noticed generalized edema. Respiratory even and unlabored, no SOB or distress observed. Kept low position of the bed with elevated HOB. Call light within reach, will conanine to monitor.
--- NOTE | 2019-06-01 19:20 | NUR ---
MS RN NOTES RECEIVED ON BED A/O X1,CONFUSED,BREATHING NON LABORED,WITH SUPRAPUBIC CATHETER IN PLACE DRAINING YELLOWISH OUTPUT.SIDE RAILS PADDED FOR SEIZURE PRECAUTION.FALL PRECAUTION OBSERVED,BED ON LOWEST POSITION AND LOCKED.CALL LIGHT IN REACH,NEEDS ANTICIPATED.
[2019-06-01 20:04] VITALS: BP 99/58
[2019-06-01 20:05] VITALS: BP 99/58
--- NOTE | 2019-06-01 21:00 | NUR ---
MS RN NOTES NOTED HAVING EPISODE OF DRY COUGH,TRYING TO SPIT OUT MUCUS,REPOSITION TO UPRIGHT,REFUSED SUCTIONING.O2 ALSO REFUSED.
--- NOTE | 2019-06-01 21:03 | NUR ---
MS RN NOTES DUE MEDICATION GIVEN,TOOK IT ONE AT A TIME.TAKEN WELL.NEGATIVE FOR ASPIRATION.
[2019-06-01] MEDS: POLYETHYLENE GLYCOL 3350 17 GM POWD.PACK PO SCH ×2 (22:00→22:34)
--- NOTE | 2019-06-01 22:00 | NUR ---
MS RN NOTES DUE MIRALAX HELD FOR LARGE LOOSE BOWEL MOVEMENT
[2019-06-01] MEDS: ATORVASTATIN 10 MG TABLET PO SCH (22:35)
--- NOTE | 2019-06-02 00:54 | NUR ---
MS ESPINOZA NOTES SLEEPING THIS TIME AFTER EVENING CARE.NO DISTRESS.ENDORSED TO DAY NURSE FOR JORDON. Addendum: 06/02/19 at 0056 by MAZIN VALENTINE RN ENDORSED TO DERIC ESPINOZA FOR JORDON.
[2019-06-02 06:28] LABS: BASOPHILS % (AUTO) 0.6 % (0.0-2.0); HEMATOCRIT 33 % (39-51); HEMOGLOBIN 11.2 g/dL (13.5-17.5); LYMPHOCYTES # (AUTO) 1.4 /CMM (0.8-4.8); LYMPHOCYTES % (AUTO) 26.4 % (20.0-44.0); MEAN CORPUSCULAR HGB CONC 34 g/dl (31.0-36.0); MEAN CORPUSCULAR VOLUME 100 fL (80-96); MONOCYTES # (AUTO) 0.6 /CMM (0.1-1.30); MONOCYTES % (AUTO) 10.8 % (2.0-12.0); NEUTROPHILS # (AUTO) 3.1 /CMM (1.8-8.9); NEUTROPHILS % (AUTO) 60.2 % (43.0-81.0); PLATELET COUNT (AUTO) 190 /CMM (150-450); RED BLOOD CELL COUNT(AUTO) 3.32 MIL/uL (4.5-6.0); WHITE BLOOD COUNT (AUTO) 5.1 K/uL (4.3-11.0)
--- NOTE | 2019-06-02 07:05 | NUR ---
MS RN NOTES PT IN BED RESTING WITH NO S/S OF ACUTE DISTRESS OR SOB NOTED. PT A/O X1, CONFUSED. PT NOTED SUPRAPUBIC CATHETER IN PLACE DRAINING YELLOWISH OUTPUT. SIDE RAILS PADDED FOR SEIZURE PRECAUTION.FALL PRECAUTION OBSERVED,BED ON LOWEST POSITION AND LOCKED.CALL LIGHT IN REACH. WILL ENDORSE TO ONCOMING NURSE FOR JORDON.
[2019-06-02 07:07] LABS: ALBUMIN 2.7 g/dL (3.4-5.0); BILIRUBIN,TOTAL 0.5 mg/dL (0.2-1.0); CALCIUM, SERUM 7.8 mg/dL (8.5-10.1); CREATININE 0.8 mg/dL (0.6-1.3); MAGNESIUM 2.1 mg/dL (1.8-2.4); PHOSPHORUS 2.7 mg/dL (2.5-4.9); POTASSIUM 3.3 mmol/L (3.5-5.1); TOTAL PROTEIN, SERUM 6.8 g/dL (6.4-8.2)
--- NOTE | 2019-06-02 07:20 | NUR ---
MS RN OPENING NOTES RECEIVE PT IN BED, ASLEEP, EASILY AROUSED, A/O X1. PT TOLERATING RA WITH NO ACUTE RESPIRATORY DISTRESS NOTED. PT DENIES ANY PAIN OR DISCOMFORT AT THIS TIME. PT ALSO DENIES ANY CONCERNS OR QUESTIONS WELL. PIV TO LEFT HAND G22, FLUSHED WITH NS, INTACT AND OPERATIONAL. PT KEPT COMFORTABLE. CALL LIGHT KEPT WITHIN REACH. PT'S BED IN LOWEST, LOCKED POSITION WITH SR X3. WILL CONTINUE PLAN OF CARE.
[2019-06-02] MEDS ORDERED: POTASSIUM CHLORIDE 20 MEQ TAB.PRT.SR PO ONE (07:30)
[2019-06-02 08:00] VITALS: BP 126/76
[2019-06-02] MEDS: CEFTRIAXONE 1 G in IV D5W 50 ML IV SCH (08:42)
[2019-06-02] MEDS: FUROSEMIDE 40 MG/4 ML VIAL IV SCH ×2 (08:46→16:38)
[2019-06-02] MEDS: prednisoLONE ACET 1% OPHT DROP 5 ML BOTTLE EACHEYE SCH ×2 (08:50→16:38)
[2019-06-02] MEDS: APIXABAN 5 MG TABLET PO SCH ×2 (08:51→16:39)
[2019-06-02] MEDS: DOCUSATE SODIUM 100 MG CAPSULE PO SCH ×2 (08:52→16:38)
[2019-06-02] MEDS: CARVEDILOL 12.5 MG TABLET PO SCH ×2 (08:52→21:00)
[2019-06-02] MEDS: SPIRONOLACTONE 25 MG TABLET PO SCH (08:52)
[2019-06-02] MEDS: ASCORBIC ACID 500 MG TABLET PO SCH (08:53)
[2019-06-02] MEDS: FERROUS SULFATE (325 MG) 325 MG/TAB TABLET PO SCH (08:53)
[2019-06-02] MEDS: OXCARBAZEPINE 150 MG TABLET PO SCH ×2 (08:53→21:34)
[2019-06-02] MEDS: LACOSAMIDE 50 MG TABLET PO SCH ×2 (08:53→21:08)
[2019-06-02] MEDS: LEVETIRACETAM (250 MG) 250 MG TABLET PO SCH ×2 (08:54→21:08)
[2019-06-02] MEDS: MAGNESIUM HYDROXIDE 30 ML UDC PO SCH (08:56)
[2019-06-02] MEDS: PROSOURCE / PROSTAT (PYXIS) 30 ML UDC PO SCH ×2 (08:57→16:40)
[2019-06-02] MEDS: MULTIVIT W/MINERALS 1 TAB TABLET PO SCH (08:57)
[2019-06-02] MEDS: SILVER SULFADIAZINE CREAM 25 GM TUBE TP SCH (09:16)
[2019-06-02 12:29] LABS: ABG BASE EXCESS 3.6 mmol/L; ABG OXYGEN SATURATION 92.4 % (92.0-98.5); ABG PCO2 35.3 mmHg (35.0-45.0); ABG PH 7.497 (7.350-7.450); ABG PO2 65.2 mmHg (75.0-100.0); AaDO2 42.3 mmHg; COHb 0.9 % (0.5-1.5); MetHb 0.3 % (0.0-1.5); O2Hb 91.3 % (94.0-97.0); SITE, ABG Right Radial; VENT MODE, BG Room Air
--- NOTE | 2019-06-02 15:15 | NUR ---
MS RN NOTES DR HARMON MADE AWARE OF ABG'S RESULT, WITH NO NEW ORDERS NOTED. ALSO, PT'S /GUILLAUMEN PREFERS TO POSTPONE/PROCEED WITH NM VQ SCAN UNTIL PROVIDES DETAILED EXPLANATION IF ITS NECESSARY. HAS NO PLANS OF AGGRESSIVE TREATMENT IF IN CASE DOCTORS WILL FIND SUCH RESULTS. DR HARMON MADE AWRE, OK TO POSTPONE. DVAID/TRACEY AWARE OF THE SITUATION WELL.
[2019-06-02 16:00] VITALS: BP 105/65
--- NOTE | 2019-06-02 18:51 | NUR ---
MS RN CLOSING NOTES PT REMAINS IN BED, INTERMITTENTLY DOZING OFF, EASILY AROUSED, A/O X1. PT TOLERATING RA WITH NO ACUTE RESPIRATORY DISTRESS NOTED. PT DENIES ANY PAIN OR DISCOMFORT AT THIS TIME. PIV TO LEFT HAND G22, FLUSHED WITH NS, INTACT AND OPERATIONAL. PT KEPT COMFORTABLE. ALL NEEDS AND CARE ATTENDED. CALL LIGHT KEPT WITHIN REACH. PT'S BED IN LOWEST, LOCKED POSITION WITH SR X3. WILL ENDORSE TO INCOMING NIGHT NURSE FOR JORDON.
--- NOTE | 2019-06-02 19:42 | NUR ---
MS RN NOTES RECEIVED ON BED A/O X1,BREATHING NON LABORED,REFUSED O2 USE.SALINE LOCK LEFT HAND INTACT AND PATENT.KELLEY CATH IN PLACE DRAINING YELLOWISH OUTPUT.ON GEL BED FOR SKIN MANAGEMENT.UPPER AND LOWER EXTREMITIES REMAINS SWOLLEN,SEIZURE PRECAUTION OBSERVED,SIDE RAILS PADDED FOR SAFETY.REPOSITION PER PROTOCOL.CALL LIGHT IN REACH,NEEDS ANTICIPATED.
[2019-06-02 19:57] VITALS: BP 104/55
[2019-06-02 20:00] VITALS: BP 104/55
--- NOTE | 2019-06-02 21:00 | NUR ---
MS RN NOTES EMPTIED KELLEY CATH 200ML OF URINE.
[2019-06-02] MEDS: HYDROCODONE/APAP 5/325MG 1 EACH TABLET PO PRN (21:33)
--- NOTE | 2019-06-02 21:33 | NUR ---
MS RN NOTES C/O GENERALIZED PAIN 6/10 ON PAIN SCALE,MEDICATED WITH NORCO 5/325MG.1TAB PO ORDERED FOR MODERATE PAIN,EVENING CARE RENDERED.HAD MODERATE BOWEL MOVEMENT.CLEANED AND KEPT DRY.REPOSITIONED.
[2019-06-02] MEDS: ATORVASTATIN 10 MG TABLET PO SCH (21:34)
[2019-06-02] MEDS: POLYETHYLENE GLYCOL 3350 17 GM POWD.PACK PO SCH (21:34)
--- NOTE | 2019-06-03 | NUR ---
MS RN NOTES REFUSED REPOSITIONING
[2019-06-03 06:35] LABS: EOSINOPHILS % (AUTO) 2.8 % (0.0-6.0); HEMATOCRIT 32 % (39-51); HEMOGLOBIN 10.9 g/dL (13.5-17.5); LYMPHOCYTES # (AUTO) 1.3 /CMM (0.8-4.8); LYMPHOCYTES % (AUTO) 28.4 % (20.0-44.0); MEAN CORPUSCULAR HGB CONC 34 g/dl (31.0-36.0); MEAN CORPUSCULAR VOLUME 100 fL (80-96); MONOCYTES # (AUTO) 0.6 /CMM (0.1-1.30); MONOCYTES % (AUTO) 12.6 % (2.0-12.0); NEUTROPHILS # (AUTO) 2.5 /CMM (1.8-8.9); NEUTROPHILS % (AUTO) 55.2 % (43.0-81.0); PLATELET COUNT (AUTO) 188 /CMM (150-450); WHITE BLOOD COUNT (AUTO) 4.4 K/uL (4.3-11.0)
--- NOTE | 2019-06-03 06:39 | NUR ---
MS RN NOTES AWAKE AND CALM,PAIN MANAGEMENT EFFECTIVE,NO SOB,AWAITING FOR TO SIGN CONSENT FOR NM PULMONARY PERFUSION WITH VENTILATION TO R/O PULMONARY EMBOLISM.NOTED BILATERAL FOOT EDEMA IMPROVED.CONTINUE TO ELEVATE ON PILLOWS.IN NO ACUTE DISTRESS.WILL ENDORSE TO DAY NURSE FOR JORDON.
[2019-06-03 07:01] LABS: CALCIUM, SERUM 7.9 mg/dL (8.5-10.1); CREATININE 0.8 mg/dL (0.6-1.3); MAGNESIUM 2.2 mg/dL (1.8-2.4); POTASSIUM 3.5 mmol/L (3.5-5.1)
--- NOTE | 2019-06-03 07:28 | NUR ---
MS RN NOTES PATIENT RECEIVED RESTING INSIDE ROOM. AWAKE, ALERT AND ORIENTED X 1, REORIENTED PATIENT TO PLACE, TIME, SITUATION. NO ACUTE DISTRESS NOTED AT THIS TIME. NO CHANGES IN LOC NOTED. PATIENT DENIES ANY PAIN OR DISCOMFORT. SUPRAPUBIC CATH IN PLACE WITH YELLOW URINE OUTPUT NOTED ON COLLECTING BAG. SEIZURE PRECAUTIONS IN PLACE. WILL CONTINUE TO MONITOR. BED LOCKED AND IN LOW POSITION. SIDE RAILS UP X 3. CALL LIGHT WITHIN EASY REACH
[2019-06-03 08:00] VITALS: BP 114/60
[2019-06-03] MEDS: CEFTRIAXONE 1 G in IV D5W 50 ML IV SCH (08:29)
[2019-06-03] MEDS: DOCUSATE SODIUM 100 MG CAPSULE PO SCH ×2 (08:30→17:33)
[2019-06-03] MEDS: FERROUS SULFATE (325 MG) 325 MG/TAB TABLET PO SCH (08:30)
[2019-06-03] MEDS: MULTIVIT W/MINERALS 1 TAB TABLET PO SCH (08:30)
[2019-06-03] MEDS: ASCORBIC ACID 500 MG TABLET PO SCH (08:30)
[2019-06-03] MEDS: SPIRONOLACTONE 25 MG TABLET PO SCH (08:30)
[2019-06-03] MEDS: CARVEDILOL 12.5 MG TABLET PO SCH ×2 (08:31→20:52)
[2019-06-03] MEDS: LEVETIRACETAM (250 MG) 250 MG TABLET PO SCH ×2 (08:31→20:53)
[2019-06-03] MEDS: OXCARBAZEPINE 150 MG TABLET PO SCH ×2 (08:32→21:54)
[2019-06-03] MEDS: LACOSAMIDE 50 MG TABLET PO SCH ×2 (08:32→20:53)
[2019-06-03] MEDS: MAGNESIUM HYDROXIDE 30 ML UDC PO SCH (08:32)
[2019-06-03] MEDS: APIXABAN 5 MG TABLET PO SCH ×2 (08:35→17:34)
[2019-06-03] MEDS: PROSOURCE / PROSTAT (PYXIS) 30 ML UDC PO SCH ×2 (08:36→17:00)
[2019-06-03] MEDS: prednisoLONE ACET 1% OPHT DROP 5 ML BOTTLE EACHEYE SCH ×2 (08:36→17:35)
[2019-06-03] MEDS: SILVER SULFADIAZINE CREAM 25 GM TUBE TP SCH (08:37)
--- NOTE | 2019-06-03 11:20 | NUR ---
MS RN NOTES NATHALIE AT BEDSIDE. VERBALIZED THAT SHE WILL PROVIDE CONSENT REGARDING VQ SCAN BUT SHE WANTS TO SPEAK WITH EITHER DYAN SALGADO OR THE HOSPITALIST. PLACED CALL TO DR HARMON AND MADE AWARE. TASNEEM URIARTE DNP PRESENT AT UNIT AND MADE AWARE, SPOKE WITH NATHALIE. VERIFIED INFORMED CONSENT OBTAINED FROM AND WITNESSED BY LICENSED STAFF. NUCLEAR MEDICINE MADE AWARE. WILL CONTINUE TO MONITOR
--- NOTE | 2019-06-03 11:22 | NUR ---
MS RN NOTES PATIENT SEEN AND EXAMINED BY DR KAPOOR. WILL CONTINUE TO MONITOR
--- NOTE | 2019-06-03 12:32 | NUR ---
MS RN NOTES PATIENT C/O PAIN, BILATERAL HANDS, PRN TYLENOL 650 MG ADMINISTERED WITH AT BEDSIDE. WILL REASSESS PAIN LEVEL.
[2019-06-03] MEDS: ACETAMINOPHEN 325 MG TABLET PO PRN ×2 (12:35→20:35)
--- NOTE | 2019-06-03 12:49 | NUR ---
MS RN NOTES PATIENT WHEELED BY [employer] FOR VQ SCAN.
[2019-06-03 16:00] VITALS: BP 126/78
--- NOTE | 2019-06-03 18:38 | NUR ---
MS RN CLOSING NOTES PATIENT RESTING IN BED WITH UPPER SIDE RAILS UP X2, WITH NO ACUTE DISTRESS. PATIENT DENIES PAIN. NO CHANGES IN LOC NOTED. WILL TRANSFER CONTINUATION OF CARE TO NEXT SHIFT.
--- NOTE | 2019-06-03 19:18 | NUR ---
MS RN NOTES PATIENT IN BED, AWAKE, ALERT AND ORIENTED X 1. BREATHING EVEN AND UNLABORED ON ROOM AIR. DENIES ACUTE RESPIRATORY DISTRESS, NO ACUTE PAIN. IV ON L HAND #22G SALINE LOCK, CLEAN DRY AND INTACT. SHOWS NO SIGNS OF REDNESS NO INFILTRATION. SEIZURE AND SAFETY PRECAUTION IN PLACE. BED IN LOWEST POSITION LOCKED AND CALL LIGHT KEPT WITHIN REACH. WILL CONTINUE TO MONITOR.
[2019-06-03 19:30] VITALS: BP 97/66
[2019-06-03 20:00] VITALS: BP 97/66
[2019-06-03] MEDS: ATORVASTATIN 10 MG TABLET PO SCH (21:53)
[2019-06-03] MEDS: POLYETHYLENE GLYCOL 3350 17 GM POWD.PACK PO SCH (21:54)
--- NOTE | 2019-06-04 07:00 | NUR ---
MS RN NOTES PATIENT IN BED, ASLEEP, ALERT AND ORIENTED X 1. BREATHING EVEN AND UNLABORED ON ROOM AIR. DENIES ACUTE RESPIRATORY DISTRESS, NO ACUTE PAIN. IV ON L HAND #22G SALINE LOCK, CLEAN DRY AND INTACT. SHOWS NO SIGNS OF REDNESS NO INFILTRATION. ALL DUE MEDICATIONS GIVEN. SEIZURE AND SAFETY PRECAUTION IN PLACE. BED IN LOWEST POSITION LOCKED AND CALL LIGHT KEPT WITHIN REACH. WILL ENDORSE TO ONCOMING NURSE.
--- NOTE | 2019-06-04 07:40 | NUR ---
MS NR OPENING NOTES PATIENT AWAKE, ALERT AND ORIENTED X1, NO CHANGES IN LOC NOTED. BED IN LOW, LOCKED POSITION WITH SEIZURE PRECAUTION IN PLACE. BREATHING EVEN AND UNLABORED, NO SIGNS OF DISTRESS. SUPRAPUBIC CATH CLEAN AND DRY. PATIENT DENIES ANY PAIN. WILL CONTINUE TO MONITOR.
--- NOTE | 2019-06-04 07:41 | NUR ---
MS RN NOTES PATIENT RESTING INSIDE ROOM. NO ACUTE DISTRESS. SUPRAPUBIC CATH IN PLACE AND DRAINING WELL, WITH YELLOW URINE OUTPUT NOTED IN COLLECTING BAG. WILL CONTINUE TO MONITOR
[2019-06-04 08:00] VITALS: BP 106/57
[2019-06-04] MEDS: CEFTRIAXONE 1 G in IV D5W 50 ML IV SCH (08:45)
[2019-06-04] MEDS: DOCUSATE SODIUM 100 MG CAPSULE PO SCH ×2 (08:46→16:54)
[2019-06-04] MEDS: LACOSAMIDE 50 MG TABLET PO SCH ×2 (08:47→20:25)
[2019-06-04] MEDS: FERROUS SULFATE (325 MG) 325 MG/TAB TABLET PO SCH (08:47)
[2019-06-04] MEDS: MULTIVIT W/MINERALS 1 TAB TABLET PO SCH (08:47)
[2019-06-04] MEDS: LEVETIRACETAM (250 MG) 250 MG TABLET PO SCH ×2 (08:47→20:25)
[2019-06-04] MEDS: ASCORBIC ACID 500 MG TABLET PO SCH (08:47)
[2019-06-04] MEDS: OXCARBAZEPINE 150 MG TABLET PO SCH ×2 (08:47→23:00)
[2019-06-04] MEDS: prednisoLONE ACET 1% OPHT DROP 5 ML BOTTLE EACHEYE SCH ×2 (08:48→16:58)
[2019-06-04] MEDS: CARVEDILOL 12.5 MG TABLET PO SCH ×2 (08:48→20:25)
[2019-06-04] MEDS: PROSOURCE / PROSTAT (PYXIS) 30 ML UDC PO SCH ×2 (08:48→16:58)
[2019-06-04] MEDS: MAGNESIUM HYDROXIDE 30 ML UDC PO SCH (08:48)
[2019-06-04] MEDS: APIXABAN 5 MG TABLET PO SCH ×2 (08:50→16:55)
[2019-06-04] MEDS: SILVER SULFADIAZINE CREAM 25 GM TUBE TP SCH (08:50)
[2019-06-04] MEDS: SPIRONOLACTONE 25 MG TABLET PO SCH (08:54)
[2019-06-04 16:00] VITALS: BP 98/68
[2019-06-04] MEDS: FUROSEMIDE 40 MG TABLET PO SCH (16:57)
--- NOTE | 2019-06-04 18:58 | NUR ---
MS RN NOTES PATIENT RESTING INSIDE ROOM. AWAKE, A/O X 1. REORIENTED NEEDED. NO ACUTE DISTRESS. NO CHANGES IN LOC NOTED. DENIES ANY PAIN OR DISCOMFORT. PATIENT KEPT CLEAN, DRY AND COMFORTABLE. SUPRAPUBIC CATH IN PLACE WITH YELLOW URINE OUTPUT NOTED ON COLLECTING BAG. PROVIDED WITH SAFE, HAZARD-FREE ENVIRONMENT. WILL ENDORSE TO INCOMING SHIFT FOR JORDON. BED LOCKED AND IN LOW POSITION. SIDE RAILS UP X 3. CALL LIGHT WITHIN EASY REACH
[2019-06-04 19:30] VITALS: BP 107/65
[2019-06-04 20:00] VITALS: BP 107/65
[2019-06-04] MEDS: ACETAMINOPHEN 325 MG TABLET PO PRN (20:28)
[2019-06-04] MEDS: POLYETHYLENE GLYCOL 3350 17 GM POWD.PACK PO SCH (22:00)
[2019-06-04] MEDS: ATORVASTATIN 10 MG TABLET PO SCH (23:00)
[2019-06-05] MEDS: ACETAMINOPHEN 325 MG TABLET PO PRN ×2 (02:58→16:43)
[2019-06-05 07:08] LABS: BASOPHILS % (AUTO) 0.5 % (0.0-2.0); EOSINOPHILS % (AUTO) 3.1 % (0.0-6.0); HEMATOCRIT 34 % (39-51); HEMOGLOBIN 11.3 g/dL (13.5-17.5); LYMPHOCYTES # (AUTO) 1.2 /CMM (0.8-4.8); MEAN CORPUSCULAR HGB CONC 34 g/dl (31.0-36.0); MEAN CORPUSCULAR VOLUME 101 fL (80-96); MONOCYTES # (AUTO) 0.5 /CMM (0.1-1.30); MONOCYTES % (AUTO) 11.4 % (2.0-12.0); NEUTROPHILS # (AUTO) 2.8 /CMM (1.8-8.9); PLATELET COUNT (AUTO) 198 /CMM (150-450); RED BLOOD CELL COUNT(AUTO) 3.32 MIL/uL (4.5-6.0); WHITE BLOOD COUNT (AUTO) 4.7 K/uL (4.3-11.0)
--- NOTE | 2019-06-05 07:10 | NUR ---
MS RN NOTES PATIENT IN BED, ASLEEP ALERT AND ORIENTED X 1. BREATHING EVEN AND UNLABORED ON ROOM AIR. DENIES ACUTE RESPIRATORY DISTRESS, NO ACUTE PAIN. IV ON L HAND #22G SALINE LOCK, CLEAN DRY AND INTACT. SHOWS NO SIGNS OF REDNESS NO INFILTRATION. SUPRAPUBIC CATH CLEAN DRY AND INTACT, FLOWING YELLOW CLEAR URINE. ALL DUE MEDICATIONS GIVEN. SEIZURE AND SAFETY PRECAUTION IN PLACE. BED IN LOWEST POSITION LOCKED AND CALL LIGHT KEPT WITHIN REACH. WILL ENDORSE TO ONCOMING NURSE.
--- NOTE | 2019-06-05 07:30 | NUR ---
MS RN OPENING NOTES PATIENT IN BED, ASLEEP ALERT AND ORIENTED X 1. BREATHING EVEN AND UNLABORED, NO S/S OF ACUTE RESPIRATORY DISTRESS NOTED. IV ON L HAND #22G SALINE LOCK, CLEAN DRY AND INTACT; NO S/S OF REDNESS OR INFILTRATION; SUPRAPUBIC CATH CLEAN DRY AND INTACT; BED IN LOWEST POSITION LOCKED, WITH UPPER SIDE RAILS UP X2, SEMI-FOWLERS AND CALL LIGHT KEPT WITHIN REACH. SEIZURE AND SAFETY PRECAUTIONS IN PLACE. WILL CONTINUE TO MONITOR.
[2019-06-05 07:33] LABS: CREATININE 0.7 mg/dL (0.6-1.3); MAGNESIUM 2.4 mg/dL (1.8-2.4); PHOSPHORUS 3.6 mg/dL (2.5-4.9); POTASSIUM 3.7 mmol/L (3.5-5.1)
[2019-06-05 08:00] VITALS: BP 148/66
[2019-06-05] MEDS: CEFTRIAXONE 1 G in IV D5W 50 ML IV SCH (08:07)
[2019-06-05] MEDS: APIXABAN 5 MG TABLET PO SCH ×2 (08:07→16:44)
[2019-06-05] MEDS: SPIRONOLACTONE 25 MG TABLET PO SCH (08:07)
[2019-06-05] MEDS: LACOSAMIDE 50 MG TABLET PO SCH ×2 (08:08→21:31)
[2019-06-05] MEDS: PROSOURCE / PROSTAT (PYXIS) 30 ML UDC PO SCH ×2 (08:09→16:42)
[2019-06-05] MEDS: MAGNESIUM HYDROXIDE 30 ML UDC PO SCH (08:09)
[2019-06-05] MEDS: LEVETIRACETAM (250 MG) 250 MG TABLET PO SCH ×2 (08:10→21:31)
[2019-06-05] MEDS: OXCARBAZEPINE 150 MG TABLET PO SCH ×2 (08:10→21:31)
[2019-06-05] MEDS: CARVEDILOL 12.5 MG TABLET PO SCH ×2 (08:11→21:32)
[2019-06-05] MEDS: ASCORBIC ACID 500 MG TABLET PO SCH (08:12)
[2019-06-05] MEDS: DOCUSATE SODIUM 100 MG CAPSULE PO SCH ×2 (08:12→16:43)
[2019-06-05] MEDS: FERROUS SULFATE (325 MG) 325 MG/TAB TABLET PO SCH (08:12)
[2019-06-05] MEDS: MULTIVIT W/MINERALS 1 TAB TABLET PO SCH (08:12)
[2019-06-05] MEDS: FUROSEMIDE 40 MG TABLET PO SCH ×2 (08:12→16:43)
[2019-06-05] MEDS: prednisoLONE ACET 1% OPHT DROP 5 ML BOTTLE EACHEYE SCH ×2 (08:13→16:43)
[2019-06-05] MEDS: SILVER SULFADIAZINE CREAM 25 GM TUBE TP SCH (08:21)
--- NOTE | 2019-06-05 09:24 | NUR ---
MS RN NOTES ADMINISTERED COPAXONE 40MG/ML SQ IN LUQ.
[2019-06-05 16:00] VITALS: BP 100/57
--- NOTE | 2019-06-05 16:17 | NUR ---
MS RN NOTES KUB RESULT RELAYED TO DR URIARTE. AWAITING ORDERS. WILL CONTINUE TO MONITOR
[2019-06-05] MEDS ORDERED: Silver Sulfadiazine Cream TP (17:33)
--- NOTE | 2019-06-05 18:29 | NUR ---
MS RN NOTES PATIENT WITH DISCHARGE ORDER FROM DR URIARTE. PATIENT TO HAVE BM PRIOR TO DISCHARGE. PATIENT AND NATHALIE AT BEDSIDE MADE AWARE AND VERBALIZED UNDERSTANDING. PLACED CALL TO BRIANNA WATT ([phone]) AND GAVE REPORT TO KERON ESPINOZA FOR JORDON
--- NOTE | 2019-06-05 18:43 | NUR ---
MS RN CLOSING NOTES PATIENT AWAKE, ALERT AND ORIENTED X1; NO CHANGES IN LOC NOTED AT THIS TIME. PATIENT IS RESTING COMFORTABLY IN BED. BREATHING EVEN AND UNLABORED; NO S/S OF ACUTE RESPIRATORY DISTRESS. SEIZURE AND SAFETY PRECAUTIONS IN PLACE, BED LOCKED IN LOWEST POSITION. AWAITING POSSIBLE DISCHARGE, WILL ENDORSE CONTINUITY OF CARE TO ONCOMING SHIFT. Addendum: 06/05/19 at 1859 by MAZIN DAMIAN RN SUPRAPUBIC CATH INTACT, CLEAN AND DRY.
[2019-06-05 20:00] VITALS: BP 113/71
--- NOTE | 2019-06-05 20:00 | NUR ---
MS RN NOTES RECEIVED PATIENT ASLEEP IN BED WITH NO DISTRESS NOTED. CALL LIGHT WITHIN REACH. PERIPHERAL LINE INTACT AND PATENT. SUPRAPUBIC CATH INTACT, PATENT, DRAINING CLEAR MELISSA URINE. BED IN LOW LOCK SETTING WITH BED ALARM ON AND FUNCTIONING PROPERLY. ALL BELONGINGS KEPT NEAR BEDSIDE. WILL CONTINUE TO MONITOR.
[2019-06-05] MEDS: ATORVASTATIN 10 MG TABLET PO SCH (21:31)
[2019-06-05 21:32] VITALS: BP 113/71
[2019-06-05] MEDS: POLYETHYLENE GLYCOL 3350 17 GM POWD.PACK PO SCH (21:32)
--- NOTE | 2019-06-05 22:40 | NUR ---
PATIENT DISCHARGED BACK TO [facility] AND PICKED UP BY KYLE WALKER VIA GURNEY IN STABLE CONDITION. PATIENT AWAKE, A/O1, WITH NO C/O PAIN OR DISCOMFORT. VITALS WNL. SUPRAPUBIC CATH INTACT AND PATENT AND DRAINING CLEAR MELISSA URINE. PERIPHERAL LINE REMOVED AND TOLERATED WELL. NO ACTIVE BLEEDING NOTED. ALL BELONGINGS AND HOME MEDS TAKEN WITH PATIENT. DISCHARGE PAPERWORK GIVEN TO EMT.
== END 2019-06-05 22:40 | DRG 280 ==
LOC: ER 17:23 → MED 20:44 → TELE 21:32 → MED 05-31 10:33
PROVIDERS: ADMIT Hospitalist; ATTEND Hospitalist
DX: I11.0 Hypertensive heart disease with heart failure (principal); G93.41 Metabolic encephalopathy; I21.A1 Myocardial infarction type 2; R53.2 Functional quadriplegia; D68.59 Other primary thrombophilia; E44.1 Mild protein-calorie malnutrition; N39.0 Urinary tract infection, site not specified; J98.11 Atelectasis; I48.91 Unspecified atrial fibrillation; G40.909 Epilepsy, unspecified, not intractable, without status epilepticus; E78.5 Hyperlipidemia, unspecified; E11.9 Type 2 diabetes mellitus without complications; D64.9 Anemia, unspecified; E87.6 Hypokalemia; F03.90 Unspecified dementia, unspecified severity, without behavioral disturbance, psychotic disturbance, mood disturbance, and anxiety; I25.10 Atherosclerotic heart disease of native coronary artery without angina pectoris; I25.2 Old myocardial infarction; Z87.891 Personal history of nicotine dependence; Z86.718 Personal history of other venous thrombosis and embolism; Z83.3 Family history of diabetes mellitus; Z82.49 Family history of ischemic heart disease and other diseases of the circulatory system; Z79.899 Other long term (current) drug therapy; Z79.01 Long term (current) use of anticoagulants; N31.9 Neuromuscular dysfunction of bladder, unspecified; B35.3 Tinea pedis; Z90.49 Acquired absence of other specified parts of digestive tract; Z88.8 Allergy status to other drugs, medicaments and biological substances; G35 Multiple sclerosis; I42.9 Cardiomyopathy, unspecified; Z98.890 Other specified postprocedural states; I07.1 Rheumatic tricuspid insufficiency; N50.89 Other specified disorders of the male genital organs; S80.822A Blister (nonthermal), left lower leg, initial encounter; X58.XXXA Exposure to other specified factors, initial encounter; M20.40 Other hammer toe(s) (acquired), unspecified foot; I50.43 Acute on chronic combined systolic (congestive) and diastolic (congestive) heart failure; Z66 Do not resuscitate; Z51.5 Encounter for palliative care; K59.00 Constipation, unspecified; I05.0 Rheumatic mitral stenosis
CPT/HCPCS: 36415; 36600; 71045-TC; 71250-TC; 74018; 78582; 80048-TC; 80053-TC; 80061-TC; 80076-TC; 81000-TC; 82140-TC; 82803-TC; 82962-TC; 83690-TC; 83735-TC; 83880; 84100-TC; 84484-TC; 85025-TC; 85730-TC; 87081-TC; 87086-TC; 87186-TC; 93307-TC; 93970-TC; 97530-TC; A9540; A9567; G0378; J0690; J0696; J1940; J3490; J7050; J7060

== ENCOUNTER 2019-06-23 11:48 | Inpatient (IN) | payer OTHER, MEDICARE ==
[~2019-06-23] VITALS: Ht 190.5 cm; Wt 74.5 kg
[~2019-06-23 11:48] MED LIST changes: +APIX5TAB PO; +ASCO500T9 PO; -BACL10TA PO; -BENEP PO; -CRAN450C PO; -DILT30TA2 PO; +FURO-144 PO; -IPRA3AMP23 IH; -METO2.5T2 PO; -POTA10TA15 PO; +SPIR25TA PO; +Silver Sulfadiazine Cream TP
--- NOTE | 2019-06-23 12:23 | NUR ---
bibwife and daughter, sent by Dr. Armendariz due to BLE edema. pt awake, alert, -sob, nad noted, vss, pending md nieves
[2019-06-23] MEDS ORDERED: FUROSEMIDE 40 MG/4 ML VIAL IV ONE (13:00)
--- NOTE | 2019-06-23 13:04 | NUR ---
CALLED [facility], PAGED NOÉ
--- NOTE | 2019-06-23 13:11 | NUR ---
BED ASSIGNED TO 111-1 PER NURSING GREY GOODS TESTER.
[2019-06-23] MEDS ORDERED: Magnesium 1GM/D5W 100ML PREMIX 100 ML IV ONE ×2 (13:26→13:59)
[2019-06-23] MEDS ORDERED: FUROSEMIDE 40 MG/4 ML VIAL ONE (13:26)
[2019-06-23 13:28] LABS: BASOPHILS # (AUTO) 0.1 /CMM (0.0-0.2); BASOPHILS % (AUTO) 1.5 % (0.0-2.0); EOSINOPHILS % (AUTO) 3.2 % (0.0-6.0); HEMATOCRIT 35 % (39-51); HEMOGLOBIN 11.5 g/dL (13.5-17.5); LYMPHOCYTES # (AUTO) 0.9 /CMM (0.8-4.8); LYMPHOCYTES % (AUTO) 23.9 % (20.0-44.0); MEAN CORPUSCULAR HGB CONC 33 g/dl (31.0-36.0); MEAN CORPUSCULAR VOLUME 102 fL (80-96); MONOCYTES # (AUTO) 0.5 /CMM (0.1-1.30); MONOCYTES % (AUTO) 12.4 % (2.0-12.0); NEUTROPHILS # (AUTO) 2.3 /CMM (1.8-8.9); PLATELET COUNT (AUTO) 191 /CMM (150-450); RED BLOOD CELL COUNT(AUTO) 3.41 MIL/uL (4.5-6.0); WHITE BLOOD COUNT (AUTO) 3.9 K/uL (4.3-11.0)
[2019-06-23] MEDS ORDERED: METO5TAB7 PO (13:28)
[2019-06-23] MEDS: Magnesium 1GM/D5W 100ML PREMIX 100 ML IV SCH ×2 (13:31→15:37)
[2019-06-23 13:40] LABS: CALCIUM, SERUM 8.5 mg/dL (8.5-10.1); CREATININE 0.8 mg/dL (0.6-1.3); POTASSIUM 3.3 mmol/L (3.5-5.1)
--- NOTE | 2019-06-23 13:42 | NUR ---
called for report, nurse busy at this time
[2019-06-23 13:45] LABS: BILIRUBIN,DIRECT 0.2 mg/dL (0.0-0.2); BILIRUBIN,TOTAL 0.4 mg/dL (0.2-1.0); TOTAL PROTEIN, SERUM 7.5 g/dL (6.4-8.2)
[2019-06-23 13:49] LABS: MAGNESIUM 1.9 mg/dL (1.8-2.4)
--- NOTE | 2019-06-23 14:00 | NUR ---
DIVISION CHIEF NOTES RECEIVED PATIENT FROM ER. PATIENT CAME WITH CHF AND BLE EDEMA WITH AND DAUGHTER. PATIENT ON ROOM AIR 91% BP 105/78 RR 20 P91 T97.5. NO SOB OR DISCOMFORT NOTED. WOUND PICTURES TAKEN AND IN CHART. MED REC DONE AND MEDICATION BROUGHT BY AND HANDED TO PHARMACY. WILL CONTINUE O MONITOR PATIENT.
--- NOTE | 2019-06-23 14:10 | NUR ---
report given to hanny anna for aryan pt transported to 1st floor
[2019-06-23] MEDS ORDERED: NA PHOS,M-B/NA PHOS,DI-BA 1 EA ENEMA RC PRN (15:30)
[2019-06-23] MEDS ORDERED: BISACODYL SUPP (10 MG) 10 MG/SUPP.RECT SUPP.RECT RC PRN (15:30)
[2019-06-23] MEDS ORDERED: MAGNESIUM HYDROXIDE 30 ML UDC PO PRN (15:30)
[2019-06-23 16:00] VITALS: BP 105/78
[2019-06-23] MEDS ORDERED: LACTULOSE 10 G/15 ML UDC (PYXIS) PO PRN (16:00)
[2019-06-23] MEDS: DOCUSATE SODIUM 100 MG CAPSULE PO SCH (17:19)
[2019-06-23] MEDS: APIXABAN 5 MG TABLET PO SCH (17:20)
[2019-06-23] MEDS: PROSOURCE / PROSTAT (PYXIS) 30 ML UDC PO SCH (17:21)
--- NOTE | 2019-06-23 19:30 | NUR ---
PACKAGING MANAGER OPENING NOTE RECEIVED PATIENT IN BED. A/OX 1-2. TOLERATING ROOM AIR. RESPIRATIONS ARE EVEN AND UNLABORED. NO S/S SOB NOTED. DENIES PAIN AT THIS TIME. EXTERNAL TELE MONITOR READS AFIB HR 80S. IN NO APPARENT DISTRESS. IV ACCESS IN LAC #20 PATENT AND SALINE LOCKED. SUPRAPUBIC KELLEY IS PRESENT, DRAINING TO GRAVITY, URINE IS YELLOW AND CLEAR. BED IS LOW AND LOCKED, HOB ELEVATED IN SEMI FOWLERS, SIDE RIALS UP X2,SEIZURE PRECAUTIONS, BED ALARM ON. AWAITING I MATTRESS. CALL LIGHT WITHIN REACH. WILL CONTINUE TO MONITOR.
--- NOTE | 2019-06-23 19:30 | NUR ---
NEEDLE FELT MAKING MACHINE OPERATOR NOTES PATIENT IN BED SLEEPING. ABLE TO AROUSE WHEN NAME CALLED. NO SOB OR DISCOMFORT NOTED. CALL LIGHT WITHIN REACH. BED AT THE LOWEST POSITION LOCKED . ENDORSED TO SHEET METAL SHOP FOREMAN NURSE FOR JORDON.
[2019-06-23] MEDS: FUROSEMIDE 40 MG/4 ML VIAL IV SCH (20:39)
[2019-06-23] MEDS: LACOSAMIDE 50 MG TABLET PO SCH (20:39)
[2019-06-23] MEDS: LEVETIRACETAM (250 MG) 250 MG TABLET PO SCH (20:39)
[2019-06-23] MEDS: LUBIPROSTONE 8 MCG PO SCH (20:40)
[2019-06-23] MEDS: CARVEDILOL 3.125 MG TABLET PO SCH (21:07)
[2019-06-23] MEDS: ATORVASTATIN 10 MG TABLET PO SCH (21:11)
[2019-06-23] MEDS: POLYETHYLENE GLYCOL 3350 17 GM POWD.PACK PO SCH (21:11)
[2019-06-23] MEDS: OXCARBAZEPINE 150 MG TABLET PO SCH (21:12)
--- NOTE | 2019-06-24 07:26 | NUR ---
HIRED HAND CLOSING NOTE PATIENT IN BED. A/OX 1-2, FORGETFUL. REMAINS TOLERATING ROOM AIR. RESPIRATIONS ARE EVEN AND UNLABORED. NO SOB NOTED. NO C/O PAIN THROUGHOUT SHIFT. EXTERNAL TELE MONITOR READS AFIB HR 80S. NO DISTRESS NOTED. IV ACCESS MAINTAINED IN LAC #20 PATENT AND SALINE LOCKED. SUPRAPUBIC KELLEY IS MAINTAINED, DRAINING TO GRAVITY, URINE IS YELLOW AND CLEAR, URINE OUTPUT 2000, OBTAINED ORDER TO IRRIGATE/FLUSH WITH 60CC OF NS BID. BED REMAINS LOW AND LOCKED, HOB ELEVATED IN SEMI FOWLERS, SIDE RIALS UP X2, SEIZURE PRECAUTIONS MAINTAINED, BED ALARM ON, STILL AWAITING KCI MATTRESS. CALL LIGHT WITHIN REACH. WILL ENDORSE TO NEXT SHIFT.
[2019-06-24 08:00] VITALS: BP 93/63
[2019-06-24] MEDS: LACOSAMIDE 50 MG TABLET PO SCH ×2 (08:34→21:17)
[2019-06-24] MEDS: MULTIVIT W/MINERALS 1 TAB TABLET PO SCH (08:34)
[2019-06-24] MEDS: SPIRONOLACTONE 25 MG TABLET PO SCH (08:34)
[2019-06-24] MEDS: LEVETIRACETAM (250 MG) 250 MG TABLET PO SCH ×2 (08:34→21:18)
[2019-06-24] MEDS: OXCARBAZEPINE 150 MG TABLET PO SCH ×2 (08:34→21:18)
[2019-06-24] MEDS: FERROUS SULFATE (325 MG) 325 MG/TAB TABLET PO SCH (08:34)
[2019-06-24] MEDS: DOCUSATE SODIUM 100 MG CAPSULE PO SCH ×2 (08:35→16:35)
[2019-06-24] MEDS: FUROSEMIDE 40 MG/4 ML VIAL IV SCH (08:35)
[2019-06-24] MEDS: CARVEDILOL 3.125 MG TABLET PO SCH ×2 (08:35→21:00)
[2019-06-24] MEDS: GLATIRAMER ACETATE 40 MG SQ SCH (08:36)
[2019-06-24] MEDS: APIXABAN 5 MG TABLET PO SCH ×2 (08:36→16:37)
[2019-06-24 08:37] LABS: BASOPHILS % (AUTO) 0.9 % (0.0-2.0); EOSINOPHILS % (AUTO) 2.9 % (0.0-6.0); HEMATOCRIT 34 % (39-51); HEMOGLOBIN 11.2 g/dL (13.5-17.5); LYMPHOCYTES % (AUTO) 25.5 % (20.0-44.0); MEAN CORPUSCULAR HGB CONC 33 g/dl (31.0-36.0); MEAN CORPUSCULAR VOLUME 101 fL (80-96); MONOCYTES # (AUTO) 0.6 /CMM (0.1-1.30); MONOCYTES % (AUTO) 15.9 % (2.0-12.0); NEUTROPHILS # (AUTO) 2.2 /CMM (1.8-8.9); NEUTROPHILS % (AUTO) 54.8 % (43.0-81.0); PLATELET COUNT (AUTO) 171 /CMM (150-450); RED BLOOD CELL COUNT(AUTO) 3.36 MIL/uL (4.5-6.0)
[2019-06-24] MEDS: PROSOURCE / PROSTAT (PYXIS) 30 ML UDC PO SCH ×2 (08:37→16:35)
[2019-06-24 08:54] LABS: CALCIUM, SERUM 8.2 mg/dL (8.5-10.1); CREATININE 0.7 mg/dL (0.6-1.3); MAGNESIUM 1.9 mg/dL (1.8-2.4); PHOSPHORUS 3.8 mg/dL (2.5-4.9)
[2019-06-24] MEDS: LUBIPROSTONE 8 MCG PO SCH ×2 (08:58→21:18)
[2019-06-24 09:34] VITALS: BP 93/63
[2019-06-24] MEDS: POTASSIUM CHLORIDE 20 MEQ POWDER PACKET PO SCH ×5 (11:40→17:54)
[2019-06-24] MEDS: METOLAZONE 2.5 MG TABLET PO SCH (12:39)
[2019-06-24] MEDS: FUROSEMIDE 100 MG/10 ML VIAL IV SCH ×3 (12:40→21:22)
[2019-06-24] MEDS: ACETAMINOPHEN 325 MG TABLET PO PRN (13:43)
[2019-06-24] MEDS ORDERED: POTASSIUM CHLORIDE 20 MEQ TAB.PRT.SR PO SCH (17:00)
--- NOTE | 2019-06-24 17:37 | NUR ---
Spoke with Belkis at the [facility] [phone] who confirmed patient is a resident of the facility and will readmit once patient is released from the hospital. Patient has hx of dementia, requires assistance with adl's. He has good family support. Current dc plan is to return to SNF. Addendum: 06/24/19 at 1737 by CAITLYN MADRID RN Amended: Links added.
--- NOTE | 2019-06-24 18:24 | NUR ---
Tele/RN - Notes Patient is A/O x 2, forgetful at times, reality orientation provided, no acute distress the whole shift, stable on room air, remain afebrile, tele shows A. Fib controlled, denies pain, additional Lasix 80 mg IVP x 2 doses and potassium replacement given as ordered, diuresing well, total urine output was 2200 ml. Pending wound consult, all pressure ulcer prevention in place. Fall and aspiration precautions maintained. All needs attended. at bedside updated on plan of care. Will continue with current medical management.
--- NOTE | 2019-06-24 20:15 | NUR ---
WIDTH STRIPPER OPENING NOTES PATIENT RECEIVED RESTING IN BED A/O X 2 IN SEMI FOWLERS POSITION. PATIENT STABLE ON ROOM AIR WITH BREATHING EVEN AND UNLABORED, NO SOB NOTED. NO SIGNS OF ACUTE DISTRESS. NO CURRENT COMPLAINTS OF PAIN OR DISCOMFORT. TELE READING CONTROLLED A FIB. SUPRAPUBIC KELLEY NOTED IN PLACE WITH CLEAR YELLOW URINE. IV LOCATED ON L AC #[address] SL. SAFETY PRECAUTIONS IN PLACE WITH BED IN LOWEST POSITION, LOCKED, SIDE RAILS UP X2, AND CALL LIGHT WITHIN REACH. WILL CONTINUE TO MONITOR.
[2019-06-24] MEDS: ATORVASTATIN 10 MG TABLET PO SCH (21:17)
[2019-06-24] MEDS: POLYETHYLENE GLYCOL 3350 17 GM POWD.PACK PO SCH (21:18)
[2019-06-24 22:44] VITALS: BP 107/72
--- NOTE | 2019-06-24 22:54 | NUR ---
STENCIL TYPIST NOTES DID NOT ADMINISTER CARVEDILOL DUE TO LOW BP OF 100/ 69. ADMINISTERED 8ML OF LASIX PRIOR. WILL CONTINUE TO MONITOR.
--- NOTE | 2019-06-25 06:34 | NUR ---
OPHTHALMIC TECHNICIAN CLOSING NOTES PATIENT IS CURRENTLY RESTING IN BED A/O X2 IN SEMI FOWLERS POSITION. PATIENT STABLE ON RA BREATHING EVEN AND UNLABORED WITH NO SOB NOTED. NO SIGNS OF ACUTE DISTRESS. NO COMPLAINTS OF PAIN OR DISCOMFORT AT THE MOMENT. TELE READING CONTROLLED A. FIB 81. SUPRAPUBIC KELLEY NOTED IN PLACE WITH CLEAR YELLOW URINE. iv LOCATED ON L AC #20 SL. ALL NEEDS WERE ATTENDED TO THROUGHOUT THE NIGHT. PATIENT WAS KEPT CLEAN AND DRY. SAFETY PRECAUTIONS IN PLACE WITH BED IN LOWEST POSITION, CALL LIGHT WITHIN REACH, SIDE RAILS UP X2, AND BREAKS ON. WILL ENDORSE TO ONCOMING SHIFT ABOUT JORDON.
[2019-06-25 06:44] LABS: BASOPHILS % (AUTO) 0.6 % (0.0-2.0); EOSINOPHILS % (AUTO) 2.9 % (0.0-6.0); HEMATOCRIT 34 % (39-51); HEMOGLOBIN 11.3 g/dL (13.5-17.5); LYMPHOCYTES % (AUTO) 26.2 % (20.0-44.0); MEAN CORPUSCULAR HGB CONC 34 g/dl (31.0-36.0); MEAN CORPUSCULAR VOLUME 100 fL (80-96); MONOCYTES # (AUTO) 0.5 /CMM (0.1-1.30); MONOCYTES % (AUTO) 12.9 % (2.0-12.0); NEUTROPHILS # (AUTO) 2.2 /CMM (1.8-8.9); NEUTROPHILS % (AUTO) 57.4 % (43.0-81.0); PLATELET COUNT (AUTO) 171 /CMM (150-450); RED BLOOD CELL COUNT(AUTO) 3.37 MIL/uL (4.5-6.0); WHITE BLOOD COUNT (AUTO) 3.7 K/uL (4.3-11.0)
[2019-06-25 06:46] LABS: CALCIUM, SERUM 8.2 mg/dL (8.5-10.1); CREATININE 0.8 mg/dL (0.6-1.3); MAGNESIUM 1.7 mg/dL (1.8-2.4); PHOSPHORUS 3.8 mg/dL (2.5-4.9)
[2019-06-25 07:39] LABS: POTASSIUM 2.7 mmol/L (3.5-5.1)
[2019-06-25 08:00] VITALS: BP 93/69
[2019-06-25] MEDS ORDERED: POTASSIUM CHLORIDE 20 MEQ TAB.PRT.SR PO ONE ×2 (08:30→17:30)
[2019-06-25] MEDS ORDERED: POTASSIUM CL. PREMIX PERIPHER. 50 ML IV SCH (08:30)
[2019-06-25] MEDS: Magnesium 1GM/D5W 100ML PREMIX 100 ML IV SCH ×2 (10:25→14:44)
[2019-06-25] MEDS: DOCUSATE SODIUM 100 MG CAPSULE PO SCH ×2 (10:27→17:40)
[2019-06-25] MEDS: FERROUS SULFATE (325 MG) 325 MG/TAB TABLET PO SCH (10:27)
[2019-06-25] MEDS: LACOSAMIDE 50 MG TABLET PO SCH ×2 (10:27→20:45)
[2019-06-25] MEDS: SPIRONOLACTONE 25 MG TABLET PO SCH (10:27)
[2019-06-25] MEDS: MULTIVIT W/MINERALS 1 TAB TABLET PO SCH (10:28)
[2019-06-25] MEDS: METOLAZONE 2.5 MG TABLET PO SCH (10:28)
[2019-06-25] MEDS: CARVEDILOL 3.125 MG TABLET PO SCH ×2 (10:29→20:46)
[2019-06-25] MEDS: LUBIPROSTONE 8 MCG PO SCH ×2 (10:31→20:49)
[2019-06-25] MEDS: PROSOURCE / PROSTAT (PYXIS) 30 ML UDC PO SCH ×2 (10:32→17:38)
[2019-06-25] MEDS: LEVETIRACETAM (250 MG) 250 MG TABLET PO SCH ×2 (10:32→20:48)
[2019-06-25] MEDS: POTASSIUM CHLORIDE 20 MEQ TAB.PRT.SR PO SCH ×5 (10:34→14:00)
[2019-06-25] MEDS: OXCARBAZEPINE 150 MG TABLET PO SCH ×2 (10:35→22:12)
[2019-06-25] MEDS: APIXABAN 5 MG TABLET PO SCH ×2 (10:37→17:39)
--- NOTE | 2019-06-25 10:55 | NUR ---
WOUND CARE CONSULT: PT PRESENTS WITH GENERALIZED EDEMA, SACRAL SCARRING AND SUPRAPUBIC CATHETER, ALL PRESENT ON ADMISSION. RECOMMENDATIONS MADE FOR SKIN PROTECTION. DISCUSSED WITH NURSING STAFF. WILL SEE PRN. CURRENT JOSEFINA SCORE IS 13. MD IN AGREEMENT WITH PLAN OF CARE. Addendum: 06/25/19 at 1056 by HELLEN CHADWICK WNDNU Amended: Links added.
[2019-06-25] MEDS ORDERED: SPIRONOLACTONE 25 MG TABLET PO SCH (11:30)
[2019-06-25 12:00] VITALS: BP 122/70
[2019-06-25] MEDS: FUROSEMIDE 100 MG/10 ML VIAL IV SCH ×3 (14:44→22:09)
[2019-06-25] MEDS: ACETAMINOPHEN 325 MG TABLET PO PRN (15:20)
[2019-06-25 16:00] VITALS: BP 128/82
--- NOTE | 2019-06-25 18:50 | NUR ---
RN closing note: Patient had a replacement of his magnesium and potassium this shift. He had a wound care consult. His suprapubic catheter was replaced due to leaking. He ate and drank well. VSS remained stable. He was medicated with Tylenol x 1 for generalized pain with relief. Family was in and out throughout the shift. Will endorse to night nurse.
[2019-06-25] MEDS: ATORVASTATIN 10 MG TABLET PO SCH (22:12)
[2019-06-25] MEDS: POLYETHYLENE GLYCOL 3350 17 GM POWD.PACK PO SCH (22:13)
[2019-06-26 04:41] VITALS: BP 107/81
[2019-06-26 08:00] VITALS: BP 113/70
[2019-06-26 08:01] LABS: BASOPHILS % (AUTO) 1.1 % (0.0-2.0); EOSINOPHILS % (AUTO) 4.1 % (0.0-6.0); HEMATOCRIT 34 % (39-51); HEMOGLOBIN 11.5 g/dL (13.5-17.5); LYMPHOCYTES % (AUTO) 29.1 % (20.0-44.0); MEAN CORPUSCULAR HGB CONC 34 g/dl (31.0-36.0); MEAN CORPUSCULAR VOLUME 101 fL (80-96); MONOCYTES # (AUTO) 0.4 /CMM (0.1-1.30); MONOCYTES % (AUTO) 12.7 % (2.0-12.0); NEUTROPHILS # (AUTO) 1.8 /CMM (1.8-8.9); PLATELET COUNT (AUTO) 173 /CMM (150-450); RED BLOOD CELL COUNT(AUTO) 3.36 MIL/uL (4.5-6.0); WHITE BLOOD COUNT (AUTO) 3.4 K/uL (4.3-11.0)
[2019-06-26] MEDS: DOCUSATE SODIUM 100 MG CAPSULE PO SCH ×2 (08:29→17:21)
[2019-06-26] MEDS: LEVETIRACETAM (250 MG) 250 MG TABLET PO SCH ×2 (08:31→21:13)
[2019-06-26] MEDS: LUBIPROSTONE 8 MCG PO SCH ×2 (08:31→21:17)
[2019-06-26] MEDS: CARVEDILOL 3.125 MG TABLET PO SCH ×2 (08:31→21:14)
[2019-06-26] MEDS: FERROUS SULFATE (325 MG) 325 MG/TAB TABLET PO SCH (08:32)
[2019-06-26] MEDS: SPIRONOLACTONE 25 MG TABLET PO SCH (08:32)
[2019-06-26] MEDS: MULTIVIT W/MINERALS 1 TAB TABLET PO SCH (08:32)
[2019-06-26] MEDS: PROSOURCE / PROSTAT (PYXIS) 30 ML UDC PO SCH ×2 (08:32→17:21)
[2019-06-26] MEDS: GLATIRAMER ACETATE 40 MG SQ SCH (08:32)
[2019-06-26] MEDS: OXCARBAZEPINE 150 MG TABLET PO SCH ×2 (08:33→21:15)
[2019-06-26] MEDS: METOLAZONE 2.5 MG TABLET PO SCH (08:33)
[2019-06-26] MEDS: LACOSAMIDE 50 MG TABLET PO SCH ×2 (08:37→21:17)
[2019-06-26] MEDS: APIXABAN 5 MG TABLET PO SCH ×2 (08:38→17:22)
[2019-06-26 09:03] LABS: ALBUMIN 2.9 g/dL (3.4-5.0); BILIRUBIN,TOTAL 0.5 mg/dL (0.2-1.0); CALCIUM, SERUM 8.5 mg/dL (8.5-10.1); CREATININE 0.8 mg/dL (0.6-1.3); PHOSPHORUS 3.9 mg/dL (2.5-4.9); TOTAL PROTEIN, SERUM 7.2 g/dL (6.4-8.2)
[2019-06-26 09:08] LABS: POTASSIUM 2.8 mmol/L (3.5-5.1)
[2019-06-26] MEDS: POTASSIUM CHLORIDE 20 MEQ TAB.PRT.SR PO SCH ×5 (10:13→14:30)
[2019-06-26] MEDS ORDERED: POTASSIUM CL. PREMIX PERIPHER. 50 ML IV SCH (11:30)
[2019-06-26] MEDS ORDERED: POTASSIUM CHLORIDE 20 MEQ TAB.PRT.SR PO SCH (11:30)
[2019-06-26 12:00] VITALS: BP 116/69
[2019-06-26] MEDS: FUROSEMIDE 100 MG/10 ML VIAL IV SCH ×3 (14:30→21:19)
[2019-06-26 16:00] VITALS: BP 110/69
[2019-06-26 17:00] VITALS: BP 110/69
--- NOTE | 2019-06-26 19:04 | NUR ---
TELE/RN CLOSING NOTES PATIENT CONTINUES TO REMAIN IN STABLE CONDITION THROUGHOUT THE SHIFT. PROVIDED SAFETY AND COMFORT. IV ACCESS ON LEFT UA INTACT AND PATENT. FLUSHING WELL. NO S/S OF INFECTION OR INFILTRATION. ABLE TO TOLERATE MEALS AND MEDS WELL. KELLEY CATH DRAINING CLEAR YELLOW URINE. INTACT AND PATENT. ALL NEEDS ANTICIPATED. CALL LIGHT WITHIN REACHED. BED LOCKED AND IN LOWEST POSITION. WILL CONTINUE TO MONITOR CLOSELY. ENDORSED TO PM NURSE FOR JORDON.
--- NOTE | 2019-06-26 19:05 | NUR ---
JDE DEVELOPER OPENING NOTES Received patient awake on [place] position on bed. On RA, no SOB/respiratory distress noted. No complaints of discomfort made at this time. With suprapubic catheter attached of urinary bag, kept below urinary bladder level. Kept on bed clean, dry and comfortable. Call light within easy reach. On fall and aspirations precautions. Will continue to monitor accordingly.
[2019-06-26 21:00] VITALS: BP 104/80
[2019-06-26] MEDS: POLYETHYLENE GLYCOL 3350 17 GM POWD.PACK PO SCH (21:13)
[2019-06-26] MEDS: ATORVASTATIN 10 MG TABLET PO SCH (21:14)
[2019-06-27] MEDS: ACETAMINOPHEN 325 MG TABLET PO PRN (00:42)
[2019-06-27 01:00] VITALS: BP 105/75
[2019-06-27 05:00] VITALS: BP 93/64
--- NOTE | 2019-06-27 06:29 | NUR ---
DENTAL TECHNOLOGIST CLOSING NOTES Patient asleep, easily awaken on bed. On RA, no SOB/respiratory distress noted. Afebrile the whole shift, no new unusualities noted. All due meds given as ordered, all nursing needs attended. On tele monitory with A-Fib noted. Kept on bed clean, dry and comfortable. Call light within easy reach. On fall and aspiration precautions. Endorsed.
[2019-06-27 06:32] LABS: BASOPHILS % (AUTO) 0.9 % (0.0-2.0); EOSINOPHILS % (AUTO) 3.1 % (0.0-6.0); HEMATOCRIT 38 % (39-51); HEMOGLOBIN 12.5 g/dL (13.5-17.5); LYMPHOCYTES # (AUTO) 1.1 /CMM (0.8-4.8); LYMPHOCYTES % (AUTO) 29.8 % (20.0-44.0); MEAN CORPUSCULAR HGB CONC 33 g/dl (31.0-36.0); MEAN CORPUSCULAR VOLUME 101 fL (80-96); MONOCYTES # (AUTO) 0.5 /CMM (0.1-1.30); MONOCYTES % (AUTO) 12.3 % (2.0-12.0); NEUTROPHILS % (AUTO) 53.9 % (43.0-81.0); PLATELET COUNT (AUTO) 172 /CMM (150-450); RED BLOOD CELL COUNT(AUTO) 3.74 MIL/uL (4.5-6.0); WHITE BLOOD COUNT (AUTO) 3.7 K/uL (4.3-11.0)
[2019-06-27 06:42] LABS: BILIRUBIN,TOTAL 0.5 mg/dL (0.2-1.0); CALCIUM, SERUM 8.7 mg/dL (8.5-10.1); CREATININE 0.9 mg/dL (0.6-1.3); MAGNESIUM 2.1 mg/dL (1.8-2.4); PHOSPHORUS 4.3 mg/dL (2.5-4.9); TOTAL PROTEIN, SERUM 7.6 g/dL (6.4-8.2)
[2019-06-27 07:01] LABS: POTASSIUM 2.8 mmol/L (3.5-5.1)
--- NOTE | 2019-06-27 07:51 | NUR ---
WHEELMAN OPENING NOTES RECEIVED PATIENT ASLEEP IN BED, ON ROOM AIR SATURATING WELL. PATIENT IS AO X1, A FIB ON THE MONITOR. NO RESPIRATORY DISTRESS IS NOTED. PATIENT IN STABLE CONDITION, NO ACUTE DISTRESS IS NOTED. SUPRAPUBIC CATHETER IS INTACT, DRAINING CLEAR YELLOW URINE. SKIN IS INTACT, PATIENT ON BED REST. STOCK SORTER ENDORSED THAT THE PATIENT IS ABLE TO SWALLOW MEDICATION. SAFETY MAINTAINED, CALL LIGHT WITHIN REACH, WILL CONTINUE TO MONITOR.
[2019-06-27 08:00] VITALS: BP 95/65
[2019-06-27] MEDS: CARVEDILOL 3.125 MG TABLET PO SCH ×2 (09:00→20:44)
[2019-06-27] MEDS: SPIRONOLACTONE 25 MG TABLET PO SCH (09:29)
[2019-06-27] MEDS: OXCARBAZEPINE 150 MG TABLET PO SCH ×2 (09:29→21:50)
[2019-06-27] MEDS: FERROUS SULFATE (325 MG) 325 MG/TAB TABLET PO SCH (09:29)
[2019-06-27] MEDS: DOCUSATE SODIUM 100 MG CAPSULE PO SCH ×2 (09:29→16:50)
[2019-06-27] MEDS: MULTIVIT W/MINERALS 1 TAB TABLET PO SCH (09:29)
[2019-06-27] MEDS: POTASSIUM CL. PREMIX PERIPHER. 50 ML IV SCH ×2 (09:31→10:58)
[2019-06-27] MEDS: LUBIPROSTONE 8 MCG PO SCH ×2 (09:32→21:49)
[2019-06-27] MEDS: APIXABAN 5 MG TABLET PO SCH ×2 (09:44→16:50)
[2019-06-27] MEDS: LEVETIRACETAM (250 MG) 250 MG TABLET PO SCH ×2 (09:45→20:45)
[2019-06-27] MEDS: PROSOURCE / PROSTAT (PYXIS) 30 ML UDC PO SCH ×2 (09:45→16:51)
[2019-06-27] MEDS: METOLAZONE 2.5 MG TABLET PO SCH (09:46)
[2019-06-27] MEDS: LACOSAMIDE 50 MG TABLET PO SCH ×2 (09:46→20:46)
[2019-06-27 12:00] VITALS: BP 106/76
[2019-06-27] MEDS: POTASSIUM CHLORIDE 20 MEQ TAB.PRT.SR PO SCH ×5 (12:12→16:50)
[2019-06-27 16:00] VITALS: BP_SYST 112; BP_SYST 115; BP_DIAS 55; BP_DIAS 57
--- NOTE | 2019-06-27 19:10 | NUR ---
RN OPENING NOTE RECEIVED PATIENT IN BED RESTING WITH HOB ELEVATED. WATCHING TV. A&O X 1. BREATHING EVEN AND NON LABORED, NO SOB NOTED. ON ROOM AIR. IN NO APPARENT DISTRESS NOTED AT THIS TIME. BED IS LOWERED AND LOCKED FOR SAFETY. CALL LIGHT IS WITHIN REACH. WILL CONTINUE TO MONITOR.
--- NOTE | 2019-06-27 19:29 | NUR ---
BIODIESEL PLANT OPERATIONS ENGINEER CLOSING NOTES NO ACUTE CHANGES TO PATIENT CONDITION DURING MY SHIFT, IN STABLE CONDITION, ALL PATIENT NEEDS MET. KELLEY REMAINED INTACT, DRAINING CLEAR YELLOW URINE. ENDORSED TO WEB METHODS DEVELOPER NURSE TO GET ACCURATE WEIGHT FOR THE PATIENT, DUE TO CLOSELY MONITORING I&O. ALL SCHEDULED MEDICATIONS GIVEN ORDERED. SAFETY MAINTAINED, CALL LIGHT WITHIN REACH, WILL CONTINUE TO MONITOR.
[2019-06-27 20:00] VITALS: BP 129/99
[2019-06-27] MEDS: ATORVASTATIN 10 MG TABLET PO SCH (21:50)
[2019-06-27] MEDS: POLYETHYLENE GLYCOL 3350 17 GM POWD.PACK PO SCH (21:50)
[2019-06-27] MEDS ORDERED: HYDROCODONE/APAP 5/325MG 1 EACH TABLET PO ONE (23:00)
[2019-06-28] VITALS: BP 113/75
[2019-06-28 04:00] VITALS: BP 100/61
--- NOTE | 2019-06-28 07:00 | NUR ---
RN CLOSING NOTE PATIENT IS IN BED RESTING WITH HOB ELEVATED. BREATHING IS EVEN AND NON LABORED. NO SOB NOTED AT THIS TIME. ABLE TO MAKE NEEDS KNOWN. CONFUSED. IN NO APPARENT DISTRESS NOTED. DUE MEDS GIVEN AND TOLERATED WELL. PATIENT IS KEPT CLEAN, DRY, AND COMFORTABLE. CALL LIGHT IS WITHIN REACH. BED IS LOWERED TO LOWEST POSITION AND LOCKED FOR SAFETY. WILL ENDORSE TO AM SHIFT RN.
[2019-06-28 08:00] VITALS: BP 83/60
--- NOTE | 2019-06-28 08:00 | NUR ---
WOOD PILER OPENING NOTES Received Patient asleep and resting in bed. A/O x 1. VS stable with no acute distress. Breathing even and unlabored on room air with no respiratory distress. Denies pain. No signs and symptoms of pain. Telemonitor in place and patent reading AFib with HR-82. Suprapubic cath in place and patent with clear yellow/pan coloured output noted. 20g PIV on LAC clean, intact, patent and flushing well. Safety precautions in place. Bed locked and set to lowest position with side rails x 2 up. All needs rendered at this time. Call light within reach. Will continue to monitor.
[2019-06-28 08:42] LABS: BASOPHILS % (AUTO) 0.9 % (0.0-2.0); EOSINOPHILS % (AUTO) 3.5 % (0.0-6.0); HEMATOCRIT 36 % (39-51); HEMOGLOBIN 12.2 g/dL (13.5-17.5); LYMPHOCYTES # (AUTO) 1.4 /CMM (0.8-4.8); LYMPHOCYTES % (AUTO) 31.3 % (20.0-44.0); MEAN CORPUSCULAR HGB CONC 34 g/dl (31.0-36.0); MEAN CORPUSCULAR VOLUME 101 fL (80-96); MONOCYTES # (AUTO) 0.6 /CMM (0.1-1.30); MONOCYTES % (AUTO) 12.7 % (2.0-12.0); NEUTROPHILS # (AUTO) 2.3 /CMM (1.8-8.9); NEUTROPHILS % (AUTO) 51.6 % (43.0-81.0); PLATELET COUNT (AUTO) 163 /CMM (150-450); WHITE BLOOD COUNT (AUTO) 4.5 K/uL (4.3-11.0)
[2019-06-28 08:44] LABS: CALCIUM, SERUM 8.7 mg/dL (8.5-10.1); CREATININE 0.7 mg/dL (0.6-1.3); MAGNESIUM 2.3 mg/dL (1.8-2.4); PHOSPHORUS 3.3 mg/dL (2.5-4.9); POTASSIUM 4.1 mmol/L (3.5-5.1)
[2019-06-28] MEDS ORDERED: SPIRONOLACTONE 25 MG TABLET PO SCH (09:00)
[2019-06-28] MEDS: DOCUSATE SODIUM 100 MG CAPSULE PO SCH ×2 (09:56→17:04)
[2019-06-28] MEDS: FERROUS SULFATE (325 MG) 325 MG/TAB TABLET PO SCH (09:57)
[2019-06-28] MEDS: PROSOURCE / PROSTAT (PYXIS) 30 ML UDC PO SCH ×2 (09:57→17:05)
[2019-06-28] MEDS: LEVETIRACETAM (250 MG) 250 MG TABLET PO SCH (09:57)
[2019-06-28] MEDS: MULTIVIT W/MINERALS 1 TAB TABLET PO SCH (09:57)
[2019-06-28] MEDS: CARVEDILOL 3.125 MG TABLET PO SCH (09:57)
[2019-06-28] MEDS: LUBIPROSTONE 8 MCG PO SCH (09:57)
[2019-06-28] MEDS: OXCARBAZEPINE 150 MG TABLET PO SCH (09:58)
[2019-06-28] MEDS: APIXABAN 5 MG TABLET PO SCH ×2 (09:58→17:04)
[2019-06-28] MEDS: LACOSAMIDE 50 MG TABLET PO SCH (09:58)
[2019-06-28] MEDS: METOLAZONE 2.5 MG TABLET PO SCH (09:58)
[2019-06-28 12:00] VITALS: BP 110/72
[2019-06-28] MEDS: ACETAMINOPHEN 325 MG TABLET PO PRN (13:11)
[2019-06-28] MEDS ORDERED: FURO80TA3 PO (13:50)
[2019-06-28] MEDS ORDERED: SPIR25TA6 PO (13:50)
[2019-06-28] MEDS ORDERED: METO2.5T7 PO (13:50)
[2019-06-28 16:00] VITALS: BP 121/68
[2019-06-28] MEDS ORDERED: FUROSEMIDE 80 MG TABLET PO SCH (16:00)
--- NOTE | 2019-06-28 18:24 | NUR ---
PRISM MEASURER NOTES Patient discharged for [email or web address] at this time. Patient in stable condition. VS stable with no acute distress. Breathing even and unlabored on room air with no respiratory distress. Denies pain. No signs and symptoms of pain. Skin assessment pictures placed in chart. Medication reconciliation and discharge orders reviewed and explained to Patient and . Patient and verbalized understanding. All belongings with Patient. Patient will follow up with SNF PCP. Patient picked up by [facility].
== END 2019-06-28 17:00 | DRG 280 ==
LOC: ER 11:58 → TELE1 13:19
PROVIDERS: ADMIT Internal Medicine; ATTEND Internal Medicine
DX: I11.0 Hypertensive heart disease with heart failure (principal); I21.A1 Myocardial infarction type 2; J96.01 Acute respiratory failure with hypoxia; G93.41 Metabolic encephalopathy; J98.11 Atelectasis; E87.1 Hypo-osmolality and hyponatremia; G40.909 Epilepsy, unspecified, not intractable, without status epilepticus; Z86.718 Personal history of other venous thrombosis and embolism; I48.91 Unspecified atrial fibrillation; I45.81 Long QT syndrome; I50.23 Acute on chronic systolic (congestive) heart failure; G35 Multiple sclerosis; Z66 Do not resuscitate; Z82.49 Family history of ischemic heart disease and other diseases of the circulatory system; G30.9 Alzheimer's disease, unspecified; F02.80 Dementia in other diseases classified elsewhere, unspecified severity, without behavioral disturbance, psychotic disturbance, mood disturbance, and anxiety; N31.9 Neuromuscular dysfunction of bladder, unspecified; E78.5 Hyperlipidemia, unspecified; D53.9 Nutritional anemia, unspecified; E11.9 Type 2 diabetes mellitus without complications; E87.6 Hypokalemia; I07.1 Rheumatic tricuspid insufficiency; T50.2X5A Adverse effect of carbonic-anhydrase inhibitors, benzothiadiazides and other diuretics, initial encounter; Y92.9 Unspecified place or not applicable; Z79.01 Long term (current) use of anticoagulants; Z79.899 Other long term (current) drug therapy; Z83.3 Family history of diabetes mellitus; Z88.8 Allergy status to other drugs, medicaments and biological substances
CPT/HCPCS: 36415; 71045-TC; 74018; 80048-TC; 80053-TC; 80076-TC; 83690-TC; 83735-TC; 83880; 84100-TC; 84484-TC; 85025-TC; 87081-TC; 87086-TC; 87186-TC; 97112-TC; 97530-TC; G0378; J1940; J3475; J3480